=== PATIENT | female | born 1955 | race Caucasian/White ===

== ENCOUNTER → 2017-02-11 | Outpatient (CLI) | payer OTHER ==
[~2017-02-11] MED LIST: ACET-1311 PO; ALPR-411 PO; BACL10TA PO; LISI-461 PO; MELO7.5T5 PO; OXYC-57 PO; PRLSR20 PO; SIMV40TA2 PO; VALA500T60 PO; compound cream
== END | disposition home or self-care (01) ==
LOC: C.LAB1850 14:14
PROVIDERS: ATTEND Obstetrics & Gynecology
DX: Z80.41 Family history of malignant neoplasm of ovary (principal)

== ENCOUNTER → 2017-02-11 | Outpatient (CLI) | payer OTHER | END | disposition home or self-care (01) | LOC: C.PAPS 08:48 | PROVIDERS: ATTEND Obstetrics & Gynecology | DX: Z12.4 Encounter for screening for malignant neoplasm of cervix (principal) ==

== ENCOUNTER → 2017-02-18 | Outpatient (CLI) | payer OTHER ==
--- NOTE | 2017-02-19 08:15 | MAMMOGRAPHY REPORT ---
ULTRASOUND OF BOTH BREASTS: 02/18/2017 CLINICAL HISTORY: 61-year-old woman presents for bilateral whole breast screening ultrasound. She i s refusing mammography given her history of breast implants, which were placed 33 years ago. No pal pable mass, focal pain or nipple discharge. COMPARISON: None. FINDINGS: Real-time high-resolution sonographic evaluation was performed throughout each breast inc luding the axillae. No suspicious right or left axillary lymphadenopathy is seen. A few morphologi pasquale normal lymph nodes are identified. The breast parenchymal echotexture is homogeneousfatty. In the 2:00 left breast, 2 cm from the nipple, there are 2 adjacent nodular slightly hypoechoic mass es measuring 9.2 x 2.7 x 4.9 mm in conglomerate. No significant increased vascularity. This could simply represent normal breast tissue or a fibroadenoma. No other discrete solid or cystic masses s een throughout the left breast including the retroareolar breast. No suspicious solid or cystic mass is seen throughout the right breast including the retroareolar br east. While evaluating the breast parenchyma bilaterally, bilateral implants are identified, with linear e chogenic internal material that is suspicious for intracapsular rupture. No definite sonographic ev idence of extracapsular rupture. However, definitive characterization with a breast MRI is recommen ded. IMPRESSION: ACR BI-RADS CATEGORY 0: INCOMPLETE EVALUATION: NEED ADDITIONAL IMAGING EVALUATION - FOL LOW-UP RECOMMENDED 1. There is a slightly hypoechoic parallel mass versus normal breast tissue in the 2:00 left breast , 2 cm from the nipple that is benign in appearance. However, given that no prior exams are availab le to assess stability, a short interval follow-up targeted ultrasound is recommended to ensure stab ility in 6 months. 2. Bilateral silicone implants demonstrate probable intracapsular rupture on ultrasound. Definitiv e characterization with a breast MRI for implant assessment is recommended to assess for intracapsul ar and possible extracapsular rupture, particularly given the age of the patient's implants. 3. At the time of breast MRI for assessing implant integrity, would also recommend administering co ntrast given that the patient is refusing mammography and the exam could also be optimized to evalua te for breast cancer. 4. Consider surgical consultation regarding bilateral breast implants. These results and recommendations were discussed with the patient at the time of the exam. Carmen Alvares M.D. ay/:02/18/2017 16:16:59 Dancing Instructor: Dr. Carmen Alvares, [facility] letter sent: Addl Imaging 0 BI-RADS Code: ACR BI-RADS Category 0: Incomplete Evaluation: Need Additional Imaging Evaluation
== END | disposition home or self-care (01) ==
LOC: C.MAMM 13:34
PROVIDERS: ATTEND Obstetrics & Gynecology
DX: F40.232 Fear of other medical care (principal); Z98.82 Breast implant status; R92.8 Other abnormal and inconclusive findings on diagnostic imaging of breast

== ENCOUNTER → 2017-02-23 | Outpatient (CLI) | payer OTHER, BC | END | disposition home or self-care (01) | LOC: C.LABBC 12:37 | PROVIDERS: ATTEND Obstetrics & Gynecology | DX: R92.8 Other abnormal and inconclusive findings on diagnostic imaging of breast (principal) ==

== ENCOUNTER → 2017-03-03 | Outpatient (CLI) | payer OTHER ==
[~2017-03-03] MED LIST changes: +GADAVIST IV PRN
--- NOTE | 2017-03-05 14:08 | MAMMOGRAPHY REPORT ---
BREAST MRI OF BOTH BREASTS : 03/03/2017 CLINICAL HISTORY: 61-year-old woman with bilateral breast implants placed approximately 33 years ago . She recently presented for bilateral whole breast screening ultrasound and declined screening angel mography. On ultrasound, there was questionable implant rupture identified bilaterally. Small nodu lar areas were seen in the 2:00 left breast on ultrasound that were indeterminate. Overall, evaluat e implant integrity, and exclude a suspicious enhancing mass. COMPARISON: Comparison is made to exams dated: 12/30/2005 ultrasound and 02/18/2017 ultrasound - [facility]. TECHNIQUE: Using a 1.5 Christy magnet and dedicated breast coil, multisequence axial images were obtai tee through the breasts. After uneventful IV administration of 7.5 mL of Gadavist, dynamic multipha se contrast-enhanced axial images, and sagittal postcontrast were obtained. Temporal subtraction ax ial images and 3-D MIP images are provided. Everything was then reviewed on a 3-D workstation, [employer]. Additional axial and sagittal STIR sequences were obtained to assess implant integrity. FINDINGS: Bilateral subglandular silicone implants are in place. There is intracapsular rupture and a possible small amount of extracapsular rupture of the right breast implant. The probable extraca psular rupture is seen on axial image 9/39 and sagittal image 42/49. It measures 8 mm in diameter a nd is located along the inferolateral posterior aspect of the fibrous capsule. There are prominent folds throughout the left breast implant, but no definitive evidence of intracapsular or extracapsul ar rupture. There is no significant background parenchymal enhancement of the right breast. There is architectu ral distortion and scarring behind the right nipple, likely related to previous surgery. This is no nenhancing. No suspicious enhancing mass, non-mass enhancement or suspicious kinetics are seen in t he right breast. There is no focal skin thickening or nipple retraction. No suspicious right axill jo ann lymphadenopathy. There is no significant background parenchymal enhancement of the left breast. On the T1 precontras t images, in the approximate 2:00 anterior left breast, there is a small, 8.7 x 3.3 mm island of gla ndular tissue that is nonenhancing which may explain the hypoechoic nodular areas seen on recent who le breast ultrasound. Although these have a benign MRI and sonographic appearance, given the conspi cuous nature, a short interval follow-up targeted left breast ultrasound is recommended in 6 months. No suspicious enhancing mass, non-mass enhancement, focal area of architectural distortion or susp icious kinetics are seen in the left breast. There is no focal skin thickening or nipple retraction . No suspicious left axillary lymphadenopathy. IMPRESSION: ACR-BI-RADS CATEGORY 3: PROBABLY BENIGN 1. Right silicone implant intracapsular rupture and possible small amount of extracapsular rupture along the inferolateral posterior origin of the capsule. 2. No definitive MRI evidence of left silicone implant intracapsular or extracapsular rupture, alth ough there are prominent folds of the implant, and the images are minimally degraded by motion artif act. 3. No suspicious enhancing mass, non-mass enhancement or definite MRI evidence of malignancy bilate rally. A small island of glandular tissue that is nonenhancing is seen in the 2:00 left breast whic h may correlate with the nodular lesions seen on recent screening ultrasound. Would recommend a josette rt interval follow-up targeted left breast ultrasound to ensure stability in 6 months. 4. If the patient declines mammography, which is the gold standard for reducing breast cancer margaret guillen, consider another modality such as annual screening ultrasound or breast MRI. The patient will receive written notification of the results. Carmen Alvares M.D. ay/:03/04/2017 16:37:05 Telegraph Repeater Mechanic: wad lubricator, [facility] letter sent: Follow Up Recommended 3 BI-RADS Code: ACR-BI-RADS Category 3: Probably Benign
== END | disposition home or self-care (01) ==
LOC: C.MRI 10:01
PROVIDERS: ATTEND Obstetrics & Gynecology
DX: R92.8 Other abnormal and inconclusive findings on diagnostic imaging of breast (principal)

== ENCOUNTER → 2017-06-18 | Outpatient (CLI) | payer OTHER ==
[~2017-06-18] MED LIST changes: -ACET-1311 PO; -GADAVIST IV PRN; -OXYC-57 PO
--- NOTE | 2017-06-18 09:51 | DIAGNOSTIC IMAGING REPORT ---
LEG LENGTH STUDY (WHOLE LEG) HISTORY: 61 years-old Female LEG LENGTH possible leg length discrepancy. COMPARISON: Left foot radiographs 08/25/2016. TECHNIQUE: 5 AP radiographs for leg length study were obtained in a standing position. FINDINGS: The right lower extremity measures 93.5 cm from the femoral head to tibial plafond and the left lower extremity measures 93.1 cm from the femoral head to tibial plafond. Mild degenerative changes involve the bilateral hips. There are phleboliths within the pelvis. No acute fracture or dislocation. Mild tricompartment osteoarthritis is noted about the knees with chondrocalcinosis involving the medial and lateral compartments of the right knee. The bones are mildly demineralized. Soft tissues are unremarkable. IMPRESSION: 1. Right lower extremity is 4 mm longer than the left. 2. Mild osteoarthritis about the bilateral hips and knees without fracture. The above report was generated using voice recognition software. It may contain grammatical, syntax or spelling errors. Electronically signed by: Tomás Garcia M.D. 06/18/2017 9:49 AM Dictated Date/Time: 06/18/2017 9:44 AM
== END | disposition home or self-care (01) ==
LOC: C.RADBC 09:31
PROVIDERS: ATTEND Physician Assistant
DX: M21.70 Unequal limb length (acquired), unspecified site (principal)

== ENCOUNTER → 2017-08-04 | Outpatient (CLI) | payer OTHER ==
[2017-08-04 14:49] LABS: BASO ABS # 0.07 K/uL (0-0.2); COMPLETE YES; EOS % 3.9 %; HEMATOCRIT 45.4 % (37-47); IG% 0.4 %; LYMPH % 22.7 %; LYMPH ABS # 1.52 K/uL (1.2-3.4); MEAN CELL VOLUME 99.6 fL (80-100); MEAN CORPUSCULAR HEMOGLOBIN 33.6 pg (25-34); MEAN CORPUSCULAR HGB CONC 33.7 g/dl (32-36); MONO % 9.3 %; NEUT % 62.7 %; PLATELET COUNT 274 K/uL (130-400); RED BLOOD COUNT 4.56 M/uL (4.2-5.4); WHITE BLOOD COUNT 6.69 K/uL (4.8-10.8)
[2017-08-04 14:56] LABS: INR 0.9 (0.9-1.1); PARTIAL THROMBOPLASTIN RATIO 1.1; PROTHROMBIN TIME (PATIENT) 10.1 SECONDS (9.0-12.0)
[2017-08-04 15:04] LABS: BLOOD UREA NITROGEN 24 mg/dl (7-18); BUN/CREATININE RATIO 22.1 (10-20); CARBON DIOXIDE 26 mmol/L (21-32); CHLORIDE 105 mmol/L (98-107); GLUCOSE 88 mg/dl (70-99); MAGNESIUM 2.1 mg/dl (1.8-2.4); POTASSIUM 4.3 mmol/L (3.5-5.1); SODIUM 139 mmol/L (136-145)
== END | disposition home or self-care (01) ==
LOC: C.LAB1850 12:40
PROVIDERS: ATTEND Internal Medicine
DX: Z00.00 Encounter for general adult medical examination without abnormal findings (principal); I10 Essential (primary) hypertension; Q87.81 Alport syndrome; R00.1 Bradycardia, unspecified; R58 Hemorrhage, not elsewhere classified

== ENCOUNTER → 2017-08-19 | Day surgery (SDC) | payer OTHER ==
[2017-08-13 11:17] VITALS: BMI 28.0
[~2017-08-19] VITALS: Ht 167.6 cm; Wt 82.0 kg
[~2017-08-19] MED LIST changes: +ACET-1311 PO; +ACETAMINOPHEN 1000 MG/100 ML IV IV ONE; +ACETAMINOPHEN 325 MG TAB PO PRN; +ATROPINE SULFATE 0.1 MG/ML 5ML SYR IV PRN; +BACITRACIN 50000 UNIT VIAL ONE; -BACL10TA PO; +BUPIVACAINE 0.25% 30 ML VIAL ONE; +CEFAZOLIN 2000MG IV PUSH 10 ML IV SCH; +CEFAZOLIN SOD 1 GM VIAL ONE; +DiphenhydrAMINE HCL 50 MG/ML VIAL ONE; +EpHEDrine SULFATE 50MG/5ML SYR ONE; +EpHEDrine SULFATE INJ 50 MG/ML AMP IV PRN; +FENTANYL CITRATE INJ 50 MCG/1 ML 2 ML VIAL IV PRN; +FENTANYL CITRATE INJ 50 MCG/1 ML 2 ML VIAL ONE; +GENTAMICIN SULFATE 40 MG/ML 2 ML VIAL ONE; +GLYCOPYRROLATE INJ 0.2 MG/ML VIAL ONE; +HYDROmorphone INJ 1 MG/ML SYR IV PRN; +HYDROmorphone INJ 2 MG/ML SYR/VIAL ONE; +LABETALOL HCL IV 5 MG/ML 20ML IV PRN; +LACTATED RINGER'S 1000ML 1,000 ML IV SCH; +LIDOCAINE HCL 2% 2 ML VIAL (20MG/ML) ONE; +LIDOCAINE/EPINEPHRINE 1% 20 ML VIAL ONE; -MELO7.5T5 PO; +MEPERIDINE HCL 25 MG/ML CARP IV PRN; +METOCLOPRAMIDE HCL INJ 5 MG/ML 2 ML VIAL IV PRN; +METOCLOPRAMIDE HCL INJ 5 MG/ML 2 ML VIAL ONE; +MIDAZOLAM HCL 1 MG/ML 2ML VIAL ONE; +NEOSTIGMINE METHYLSULFATE 5 MG/5 ML SYR ONE; +ONDANSETRON INJ 2 MG/ML 2 ML VIAL IV PRN; +ONDANSETRON INJ 2 MG/ML 2 ML VIAL ONE; +OXYC-57 PO; +OXYCODONE/ACETAMINOPHEN 5-325 TAB PO PRN; +PROPOFOL IV EMULSION 10 MG/ML 100 ML VIAL IV ONE; +PROPOFOL IV EMULSION 10 MG/ML 20 ML VIAL IV ONE; +REMIFENTANIL 1 MG VIAL ONE; +ROCURONIUM BROMIDE 10 MG/ML 5 ML VIAL IV ONE; +SCOPOLAMINE 1.5 MG TDSY TD ONE; +SODIUM CHLORIDE 0.9% 1000ML 1,000 ML IV SCH; -VALA500T60 PO; -compound cream
[2017-08-19 05:47] VITALS: BP 136/73; PULSE 51; TEMP 36.7; O2SAT 95; Ht 167.6 cm; Wt 82.0 kg
--- NOTE | 2017-08-19 07:01 | History & Physical Bridge Note ---
H&P Re-Evaluation Bridge Note: I have examined the patient, reviewed the History & Physical and in the interval since the performance of the History & Physical I have noted the following changes of clinical significance: No changes noted
--- NOTE | 2017-08-19 10:05 | [facility] Post Operative Brief Note ---
Immediate Operative Summary Operative Date Aug 19, 2017. Pre-Operative Diagnosis Capsular contracture of breast implant abnormal findings on radiological examination of breast ruptured silicone breast implant Post-Operative Diagnosis same Procedure(s) Performed Bilateral Breast Implant Removal with Capsulectomy, Replacement of Implants Surgeon Dr. Aggie Plunkett Assistant Front End Manager Surgeon(s) Martha Kelly PA-C Estimated Blood Loss 5 Findings left implant ruptured, some calcification of left capsule right implant ruptured, significant calcification of capsule, extra capsular rupture Specimens A. explanted implant left breast B. left breast capsule c. explanted implant right breast d. left breast capsule Anesthesia general Complication(s) None Disposition Recovery Room / PACU
--- NOTE | 2017-08-19 10:20 | Discharge Instructions ---
Discharge Instructions Date of Service Aug 19, 2017. Admission Reason for Admission: Capsular Contracture Of Breast Implant Discharge Discharge Diagnosis / Problem: Breast Implant Rupture Discharge Goals Goal(s): Decrease discomfort Activity Recommendations Activity Limitations: per Instructions/Follow-up section ACTIVITY RECOMMENDATIONS: __Normal activities _x_No bending, lifting or straining __No driving __Driving allowed when you are off pain medications _x_Walking permitted __You should have help at home for ___ days DRESSINGS: __No dressings required _x_Keep dressings dry/in place until first office visit. You may adjust surgical bra for comfort, but continue to wear it. __Remove dressings ___ and leave dressings off _x_Apply ice _2-3__ days __Remove dressings and reapply garment __Apply antibiotic ointment (Bacitracin, Neosporin, etc) to wounds 3-4 times/ day for 10 days BATHING: _x_Keep dressings dry _x_Sponge bathing permitted- but not on breasts __Showering permitted _x_No swimming, hot tubs or soaking in a tub MEDICATIONS: Resume previous medications unless instructed otherwise by your surgeon. _x_Do not use aspirin, Motrin, Advil or Ibuprofen as these may promote bleeding. Please use Tylenol. _x_Prescription(s) provided: Percocet provided today per patient request. You may be fine to start with Tramadol. OTHER INSTRUCTIONS: __Record drain output 2-3 times per day SPECIAL CARE INSTRUCTIONS: * It is normal to have a mild fever after surgery. If your temperature is higher than 101.5 degrees F, please call the office at [phone]. * Constipation is a typical side effect of pain medication. An over-the- counter stool softener will help relieve this. * Leaking around surgical drains may occur and should not cause concern. Sometimes these drains become clogged. If this happens, remove the bulb and milk the clot out of the tube, then replace the bulb. * Drainage from wounds after liposuction is normal and should be expected. Garments will become soiled. You should protect furniture and bedding. This drainage should mostly subside within 2-3 days. Leave garments in place unless instructed to remove them. * If you have unusual drainage from a wound or are concerned you have an infection or have any questions or concerns, please call the office at [phone]. FOLLOW UP VISIT: If not already scheduled, please call the office, , when you return home after surgery to schedule an appointment to be seen in _2__ days. . Current Hospital Diet Patient's current hospital diet: Discharge Diet Recommended Diet: Regular Diet Procedures Procedures Performed: Bilateral Breast Implant Removal with Capsulectomy, Replacement of Implants Pending Studies Studies pending at discharge: yes List of pending studies: pathology Medical Emergencies . Who to Call and When: Medical Emergencies: If at any time you feel your situation is an emergency, please call 911 immediately. . Non-Emergent Contact Non-Emergency issues call your: Primary Care Provider, Surgeon . "Provider Documentation" section prepared by Martha Kelly. . VTE Core Measure Inpt VTE Proph given/why not?: SCD's [place] Drug Monitoring Program Search Results: no issues identified
--- NOTE | 2017-08-19 10:57 | Anesthesiology Progress Note ---
Anesthesia Post Op Note Date & Time Aug 19, 2017 at 10:56 Vital Signs Pain Intensity: 0 Vital Signs Past 12 Hours Date Time Temp Pulse Resp B/P (MAP) Pulse Ox O2 Delivery O2 Flow Rate FiO2 08/19/17 10:45 36.1 46 16 128/70 98 Nasal Cannula 2 08/19/17 10:35 72 16 129/73 98 Oxymask 3 08/19/17 10:25 69 16 132/81 98 Oxymask 5 08/19/17 10:15 36.0 67 16 133/76 98 Oxymask 10 08/19/17 05:47 36.7 51 16 136/73 (94) 95 Room Air Notes Mental Status: alert / awake / arousable, participated in evaluation Pt Amnestic to Procedure: Yes Nausea / Vomiting: adequately controlled Pain: adequately controlled Airway Patency, RR, SpO2: stable & adequate BP & HR: stable & adequate Hydration State: stable & adequate Anesthetic Complications: no major complications apparent
[2017-08-19 11:00] VITALS: BP 131/70; PULSE 66; TEMP 36.2; O2SAT 94
[2017-08-19 11:30] VITALS: BP 122/77; PULSE 64; TEMP 36.4; O2SAT 97
[2017-08-19 12:00] VITALS: BP 121/75; PULSE 65; TEMP 36.4; O2SAT 94
--- NOTE | 2017-08-19 18:12 | OPERATIVE REPORT ---
DATE OF OPERATION: 08/19/2017 PREOPERATIVE DIAGNOSIS: Bilateral ruptured silicone breast implants and capsular contracture. POSTOPERATIVE DIAGNOSIS: Same. PROCEDURE: Bilateral breast implant removal with capsulectomy and replacement of implants. SURGEON: Dr. Aggie Plunkett. S IRON WORKER: Martha Kelly PA-C. ANESTHESIA: General. COMPLICATIONS: None. INDICATION FOR THE PROCEDURE: The patient is a 62-year-old female who presented to my office with concerns of right breast pain and firmness. MRI suggested bilateral implant rupture. With this in mind, we recommended implant removal and replacement if desired. Her breast implants have been in place for approximately 30 years and we did recommend implant replacement due to significant likely breast tissue atrophy due to longstanding placement of implants. BRIEF DESCRIPTION OF THE PROCEDURE: The risks, benefits and alternatives of the procedure were explained to the patient who agreed and signed consent. She was identified and marked in the preoperative holding area. She was brought to the operating room where she was positioned supine and placed under anesthesia without incident. Surgical site was prepped and draped sterilely. I began with the left side. Our prior incision had been an inferior areolar incision. However, due to the degree of capsular contracture, felt it would be difficult to use this incision and therefore opted to use an inframammary fold incision. A 1% lidocaine with epinephrine was used to anesthetize the planned incision as well as the breast parenchyma. A 15 blade scalpel was used to make the incision and deepened using electrocautery. Dissection was carried through breast parenchyma until the capsule was identified. The implant was noted to be in the subglandular plane. I was able to perform the majority of the capsular dissection, leaving the implant in place and this was performed using electrocautery. There was evidence of possible extracapsular rupture on the left. Capsular dissection was performed until I reached the 12 o'clock position in which case it was difficult to adequately perform this with the implant in situ. I achieved hemostasis throughout the dissection using a lighted retractor, insulated forceps and electrocautery. When I could no longer continue dissection, the capsule was opened and the implant was removed. While the implant did appear to be intact, the outer shell of the implant was grossly ruptured. There were no markings on the implant to identify brand style or volume. I did measure the implant was removed and it was 13.7 base diameter and 2.7 cm projection. Photographs were taken to document implant rupture. Following removal of the implant, the remainder of the capsule was able to be dissected and removed in its entirety using electrocautery and an Allis clamp. Upon removal of the capsule, there was noted to be some calcification posteriorly consistent with prior rupture. Hemostasis was achieved with electrocautery. The pocket was irrigated using Betadine. Saline was used to irrigate the pocket and it was packed using saline-soaked lap sponges and Marcaine. Attention was then turned to the right breast. A similar procedure was undertaken. However, there was evidence of gross rupture of the right implant with significant calcification noted both anteriorly and posteriorly. There was evidence of free silicone as well. The implant and shell were removed when I was unable to perform dissection of the capsule any further. Following this, the entire capsule was removed using electrocautery and Allis clamp. Again, the pocket was irrigated in similar fashion and packed. At this point based on measurements of the left breast implant, I looked at size options. Initially I tried a 350 mL implant which was felt to be too small. Therefore, tried a 425 mL implant with similar measurements and this did appear to adequately fill out the pocket and provide a good result. Therefore, I ended up selecting a [place] smooth round moderate plus profile 425 mL silicone implant which was placed in the pocket. This was soaked in antibiotic irrigation and the pocket was irrigated with antibiotic and instruments were wiped, gown and gloves were changed prior to handling the implant. It was placed in the pocket and the incision was closed using 2-0 Vicryl superficial fascial sutures followed by 2-0 Vicryl deep dermal sutures, 3-0 PDS superficial dermal sutures and 3-0 Monocryl running subcuticular suture. A similar procedure was undertaken on the right side with regard to implant selection antibiotic irrigation and closure. Dermabond was applied to both incisions. Dry dressings were placed followed by a surgical support bra. Both implants and capsules were sent for pathology. Photographs were taken of both implants as well as capsules to document degree of calcification. I attest to the content of the Intraoperative Record and any orders documented therein. Any exception s are noted below.
--- NOTE | 2017-08-25 13:56 | [facility] Operative Report ---
Operative Report Operative Date Aug 25, 2017. Pre-Operative Diagnosis Capsular contracture of breast implant abnormal findings on radiological examination of breast ruptured silicone breast implant Post-Operative Diagnosis same Procedure(s) Performed Bilateral Breast Implant Removal with Capsulectomy, Replacement of Implants Surgeon Dr. Aggie Plunkett Identifier Horse Surgeon(s) Martha Kelly PA-C Estimated Blood Loss 5 Findings see original op note Specimens A. explanted implant left breast B. left breast capsule c. explanted implant right breast d. left breast capsule Anesthesia general Disposition Recovery Room / PACU Description of Procedure Addendum to previously dictated note-Martha Kelly PA-C was present and scrubbed throughout the entire procedure and was instrumental in providing retraction to facilitate capsulectomy and assisting in simultaneous wound closure. I attest to the content of the Intraoperative Record and any orders documented therein. Any exceptions are noted below.
== END | disposition home or self-care (01) ==
LOC: C.ACU 05:24
PROVIDERS: ATTEND Plastic Surgery
DX: T85.49XA Other mechanical complication of breast prosthesis and implant, initial encounter (principal); T85.44XA Capsular contracture of breast implant, initial encounter; Y81.2 Prosthetic and other implants, materials and accessory general- and plastic-surgery devices associated with adverse incidents; R92.8 Other abnormal and inconclusive findings on diagnostic imaging of breast; Q87.81 Alport syndrome; F41.9 Anxiety disorder, unspecified; Z80.41 Family history of malignant neoplasm of ovary; Z86.19 Personal history of other infectious and parasitic diseases; Z90.710 Acquired absence of both cervix and uterus; Z84.1 Family history of disorders of kidney and ureter; Z87.891 Personal history of nicotine dependence; Z88.5 Allergy status to narcotic agent; E66.9 Obesity, unspecified; N03.9 Chronic nephritic syndrome with unspecified morphologic changes

== ENCOUNTER → 2018-04-29 | Outpatient (CLI) | payer OTHER ==
[~2018-04-29] MED LIST changes: -ACETAMINOPHEN 1000 MG/100 ML IV IV ONE; -ACETAMINOPHEN 325 MG TAB PO PRN; -ATROPINE SULFATE 0.1 MG/ML 5ML SYR IV PRN; -BACITRACIN 50000 UNIT VIAL ONE; +BACL10TA PO; -BUPIVACAINE 0.25% 30 ML VIAL ONE; -CEFAZOLIN 2000MG IV PUSH 10 ML IV SCH; -CEFAZOLIN SOD 1 GM VIAL ONE; -DiphenhydrAMINE HCL 50 MG/ML VIAL ONE; -EpHEDrine SULFATE 50MG/5ML SYR ONE; -EpHEDrine SULFATE INJ 50 MG/ML AMP IV PRN; -FENTANYL CITRATE INJ 50 MCG/1 ML 2 ML VIAL IV PRN; -FENTANYL CITRATE INJ 50 MCG/1 ML 2 ML VIAL ONE; -GENTAMICIN SULFATE 40 MG/ML 2 ML VIAL ONE; -GLYCOPYRROLATE INJ 0.2 MG/ML VIAL ONE; -HYDROmorphone INJ 1 MG/ML SYR IV PRN; -HYDROmorphone INJ 2 MG/ML SYR/VIAL ONE; -LABETALOL HCL IV 5 MG/ML 20ML IV PRN; -LACTATED RINGER'S 1000ML 1,000 ML IV SCH; -LIDOCAINE HCL 2% 2 ML VIAL (20MG/ML) ONE; -LIDOCAINE/EPINEPHRINE 1% 20 ML VIAL ONE; -MEPERIDINE HCL 25 MG/ML CARP IV PRN; -METOCLOPRAMIDE HCL INJ 5 MG/ML 2 ML VIAL IV PRN; -METOCLOPRAMIDE HCL INJ 5 MG/ML 2 ML VIAL ONE; -MIDAZOLAM HCL 1 MG/ML 2ML VIAL ONE; -NEOSTIGMINE METHYLSULFATE 5 MG/5 ML SYR ONE; -ONDANSETRON INJ 2 MG/ML 2 ML VIAL IV PRN; -ONDANSETRON INJ 2 MG/ML 2 ML VIAL ONE; -OXYC-57 PO; -OXYCODONE/ACETAMINOPHEN 5-325 TAB PO PRN; -PROPOFOL IV EMULSION 10 MG/ML 100 ML VIAL IV ONE; -PROPOFOL IV EMULSION 10 MG/ML 20 ML VIAL IV ONE; -REMIFENTANIL 1 MG VIAL ONE; -ROCURONIUM BROMIDE 10 MG/ML 5 ML VIAL IV ONE; -SCOPOLAMINE 1.5 MG TDSY TD ONE; -SODIUM CHLORIDE 0.9% 1000ML 1,000 ML IV SCH
[2018-04-29 15:40] LABS: BASO % 0.6 %; BASO ABS # 0.04 K/uL (0-0.2); EOS % 4.3 %; EOS ABS # 0.27 K/uL (0-0.5); HEMATOCRIT 41.4 % (37-47); HEMOGLOBIN 13.7 g/dL (12.0-16.0); IG# 0.01 K/uL (0.00-0.02); LYMPH % 23.7 %; LYMPH ABS # 1.48 K/uL (1.2-3.4); MEAN CELL VOLUME 98.1 fL (80-100); MEAN CORPUSCULAR HEMOGLOBIN 32.5 pg (25-34); MEAN CORPUSCULAR HGB CONC 33.1 g/dl (32-36); MEAN PLATELET VOLUME 10.4 fL (7.4-10.4); MONO % 8.7 %; MONO ABS # 0.54 K/uL (0.11-0.59); NEUT % 62.5 %; PLATELET COUNT 266 K/uL (130-400); WHITE BLOOD COUNT 6.24 K/uL (4.8-10.8)
== END | disposition home or self-care (01) ==
LOC: C.LAB1850 14:48
PROVIDERS: ATTEND Internal Medicine
DX: E78.00 Pure hypercholesterolemia, unspecified (principal)

== ENCOUNTER 2023-03-30 09:41 | Inpatient (IN) ==
--- NOTE | 2023-03-05 13:30 | PAT Medication Instructions ---
Medication Instructions Date of Service March 05, 2023 Home Medications Medication Instructions Recorded fluticasone propionate 50 2 spray intranasal QAM PRN Allergy 06/07/21 mcg/actuation nasal Symptoms #48 grams spray,suspension triamcinolone acetonide 0.025 % 1 applic topical TID PRN itching 03/11/22 topical cream #15 grams albuterol sulfate 90 mcg/actuation 1 inh inhalation QID PRN shortness 06/04/22 aerosol inhaler (Ventolin HFA) of breath or wheezing #8.5 grams lidocaine 5 % topical patch 2 patch topical DAILY #60 ea 10/21/22 alprazolam 0.5 mg tablet 0.5 - 1 mg PO HS PRN Sleep #60 tabs 12/05/22 glucosamine sulf dipot chlr,msm,chond 550 mg-C 30 mg-angelika 1 mg capsule (Glucosamine Chondroitin) 2 cap PO QAM fluticasone propionate 50 mcg/actuation nasal spray,suspension 2 spray intranasal QAM PRN ascorbic acid (vitamin C) 500 mg capsule,extended release (Vitamin C) 500 mg PO QAM cholecalciferol (vitamin D3) 25 mcg (1,000 unit) capsule 1,000 unit PO QAM triamcinolone acetonide 0.025 % topical cream 1 applic topical TID PRN albuterol sulfate 90 mcg/actuation aerosol inhaler (Ventolin HFA) 1 inh inhalation QID PRN lidocaine 5 % topical patch 2 patch topical DAILY alprazolam 0.5 mg tablet 0.5 - 1 mg PO HS PRN baclofen 10 mg tablet 10 mg PO TID PRN hydrochlorothiazide 25 mg tablet 25 mg PO Q7D losartan 100 mg tablet 100 mg PO QAM meloxicam 15 mg tablet 15 mg PO QAM nystatin 100,000 unit/gram topical powder 1 applic topical DAILY PRN pantoprazole 40 mg tablet,delayed release 40 mg PO BID rosuvastatin 20 mg tablet 20 mg PO HS sucralfate 100 mg/mL oral suspension 10 ml PO DAILY PRN ASK your surgeon for instructions meloxicam 15 mg tablet 15 mg PO QAM STOP taking 2 weeks before surgery (or as soon as possible if surgery is within 2 weeks) glucosamine sulf dipot chlr,msm,chond 550 mg-C 30 mg-angelika 1 mg capsule (Glucosamine Chondroitin) 2 cap PO QAM STOP taking 24 hours before surgery triamcinolone acetonide 0.025 % topical cream 1 applic topical TID PRN lidocaine 5 % topical patch 2 patch topical DAILY nystatin 100,000 unit/gram topical powder 1 applic topical DAILY PRN DO NOT take the morning of surgery ascorbic acid (vitamin C) 500 mg capsule,extended release (Vitamin C) 500 mg PO QAM cholecalciferol (vitamin D3) 25 mcg (1,000 unit) capsule 1,000 unit PO QAM baclofen 10 mg tablet 10 mg PO TID PRN hydrochlorothiazide 25 mg tablet 25 mg PO Q7D losartan 100 mg tablet 100 mg PO QAM sucralfate 100 mg/mL oral suspension 10 ml PO DAILY PRN Take morning of surgery With a small sip of water, OTHERWISE NOTHING TO EAT OR DRINK AFTER MIDNIGHT: fluticasone propionate 50 mcg/actuation nasal spray,suspension 2 spray intranasal QAM PRN(if needed) albuterol sulfate 90 mcg/actuation aerosol inhaler (Ventolin HFA) 1 inh inhalation QID PRN(use if needed; please bring with you to hospital day of surgery if possible) pantoprazole 40 mg tablet,delayed release 40 mg PO BID Take evening before surgery alprazolam 0.5 mg tablet 0.5 - 1 mg PO HS PRN(if needed) baclofen 10 mg tablet 10 mg PO TID PRN(if needed) pantoprazole 40 mg tablet,delayed release 40 mg PO BID rosuvastatin 20 mg tablet 20 mg PO HS Other Notes If you have any questions please call us at [phone] or [phone] or [phone] or [phone]
--- NOTE | 2023-03-16 10:39 | Anesthesiology Consultation ---
Date of Service March 16, 2023 Assessment & Plan (1) Encounter for pre-operative examination: - Cr 1.5, PCP response: CKD3 w/ baseline Cr since 08/2020 ~1.3-1.5. No further workup/optimization needed from renal perspective prior to surgery. Encourage good hydration, limit PO NSAIDs as able, avoid perioperative hypotension. Hold losartan on the morning of surgery." - pt requests only manual BP checks. Chart Review Chart Review: Acceptable Risk for Surgery and Patient seen in Pre Admission Testing Teaching & Discussion Pre-Anesthesia Teaching/Discussion Notes: Instructed NPO after midnight before surgery, except medications with 15 cc of water. Medication instructions provided according to the PAT guidelines. History Surgery Operation Date: 03/30/23 07:45 Proposed Procedures p L2-L5 Decompression and Fusion, Spinal Cord Monitoring - Benjie Delgado DO Height/Weight Height: 5 ft 7 in Weight: 81.647 kg Allergies Allergy/AdvReac Type Severity Reaction Status Date / Time aminophylline Allergy Unknown BREATHING Verified 03/05/23 09:12 ISSUES, AND VOMITING codeine Allergy Unknown SEVERE Verified 03/05/23 09:12 VOMITING theophylline Allergy Unknown SEVERE Verified 03/05/23 09:12 VOMITING, BREATHING ISSUES oxycodone Allergy Unknown Verified 03/05/23 09:12 Medications Home Medications Medication Instructions Recorded Confirmed Last Taken glucosamine sulf dipot 2 cap PO QAM 06/25/20 03/05/23 04/01/21 08:00 chlr,msm,chond 550 mg-C 30 mg-angelika 1 mg capsule (Glucosamine Chondroitin) fluticasone propionate 50 2 spray intranasal QAM PRN Allergy 06/07/21 03/05/23 Unknown mcg/actuation nasal Symptoms #48 grams spray,suspension ascorbic acid (vitamin C) 500 mg 500 mg PO QAM 09/25/21 03/05/23 Unknown capsule,extended release (Vitamin C) cholecalciferol (vitamin D3) 25 1,000 unit PO QAM 09/25/21 03/05/23 Unknown mcg (1,000 unit) capsule triamcinolone acetonide 0.025 % 1 applic topical TID PRN itching 03/11/22 03/05/23 Unknown topical cream #15 grams albuterol sulfate 90 mcg/actuation 1 inh inhalation QID PRN shortness 06/04/22 03/05/23 Unknown aerosol inhaler (Ventolin HFA) of breath or wheezing #8.5 grams lidocaine 5 % topical patch 2 patch topical DAILY #60 ea 10/21/22 03/05/23 Unknown alprazolam 0.5 mg tablet 0.5 - 1 mg PO HS PRN Sleep #60 tabs 12/05/22 03/05/23 Unknown baclofen 10 mg tablet 10 mg PO TID PRN muscle spasms 03/05/23 03/05/23 Unknown hydrochlorothiazide 25 mg tablet 25 mg PO Q7D 03/05/23 03/05/23 Unknown losartan 100 mg tablet 100 mg PO QAM 03/05/23 03/05/23 Unknown meloxicam 15 mg tablet 15 mg PO QAM 03/05/23 03/05/23 Unknown nystatin 100,000 unit/gram topical 1 applic topical DAILY PRN Skin 03/05/23 03/05/23 Unknown powder Irritation pantoprazole 40 mg tablet,delayed 40 mg PO BID 03/05/23 03/05/23 Unknown release rosuvastatin 20 mg tablet 20 mg PO HS 03/05/23 03/05/23 Unknown sucralfate 100 mg/mL oral 10 ml PO DAILY PRN Nausea #420 mL 03/06/23 Unknown suspension valacyclovir 500 mg tablet 500 mg PO DAILY 5 days #5 tabs 03/06/23 Unknown (Valtrex) diphenhydramine HCl 25 mg capsule 25 mg PO HS 03/16/23 03/16/23 Unknown (Benadryl) Additional Notes: Pt states surgeon has advised use of a "muscle stimulator" in the evening and was advised to contact surgeon's office for instructions. She uses a tincture of medical marijuana in the evening-was instructed cannot take day of surgery. She also reports taking benadryl in the evening to aid sleep, this was added to EMR and written on provided medication instructions. She denies additional medications, questions or concerns. Past Medical History Medical History (Updated 03/16/23 @ 11:22 by Ericka Oneill PA-C) Asthma As a teenager, no current issues Bradycardia baseline for patient CKD (chronic kidney disease) stage 3, GFR 30-59 ml/min Depression history of after loss of a child Gastritis GERD (gastroesophageal reflux disease) controlled, stable per pt Hyperlipidemia Hypertension controlled, stable per pt-*pt requests only manual BP checks Kidney disease Chronic Glomerulo nephritis Nausea and vomiting after administration of anesthetic agent denies needing scop patch Obesity (BMI 30-39.9) Sensorineural hearing loss (SNHL) of right ear with restricted hearing of left ear Rt RIVERA Tinnitus of right ear Urinary incontinence Vertigo Has occasional episodes-stable per pt Patient denies h/o stroke, seizures, heart attack, heart failure, DM, blood clots or blood transfusions. Exercise / Class Metabolic Activity III < 4 Walking/Shop/Light housework (denies chest discomfort or shortness of breath with usual activities, does not ambulate stairs due to current back pain) Past Family History Family History Brother Hearing loss Son Hearing loss Mother Hypertension Cancer Family history of ovarian cancer Father Hypertension Heart disease Sister Cervix cancer Grandmother (Maternal) Uterine cancer Other Kidney disease Denies family history of Breast cancer Colorectal cancer Past Surgical History Surgical History (Updated 03/16/23 @ 10:58 by Ericka Oneill PA-C) H/O bilateral breast implants last exchange 08/2017 for rupture and capsular contracture [place] MP 425 cc silicone, smooth round H/O laparoscopy Dx H/O oophorectomy L, R remains H/O: hysterectomy 1984 History of colonoscopy History of esophagogastroduodenoscopy (EGD) History of selective injection of anesthetic agent around lumbar nerve root Hx of bilateral cataract extraction S/P tooth extraction Past Anesthesia History No Hx of Anesthesia Complications and No Family Hx of Anesthesia Complications History of PONV No Hx of Motion Sickness and History of PONV (denies needing scop patch) Social History Smoking Status: Former smoker Do You Dip or Chew Tobacco: No Smoking End Date: 2007 Hx Alcohol Use: Yes Alcohol type: beer, wine and hard liquor alcohol intake frequency: a few times a week Hx Substance Use: No substance use type: marijuana (medical marijuana-used for anxiety and pain- advised) Review of Systems Snoring, denies witnessed apneas. Patient denies chest pain, shortness of breath, dyspnea on exertion, fever, chills, cough, wheezing, or palpitations. Physical Exam Vital Signs Vitals BP 122/71 P 46 TEMP 97.9 SP02 96% on RA RESP 17 Physical Full cervical extension range of motion without pain TMD 3.5 finger breadths Mallampati Score 2 Dentition: one crown, denies chipped or loose teeth, caps, implants or bridges Lungs: normal respiratory effort. Good air movement, clear throughout to auscultation, no adventitious breath sounds Cardiac: regular rate and rhythm, no murmurs noted Carotid arteries: negative bruit bilat Lab Results Anesthesia Preop Results Results Anesthesia Widget: WBC 6.75 K/ul (4.8-10.8) 03/16/23 Hgb 12.1 g/dl (12.0-16.0) 03/16/23 Hct 38.4 % (37.0-47.0) 03/16/23 Plt 246 K/uL (130-400) 03/16/23 Na 140 mmol/L (136-145) 03/16/23 K 4.6 mmol/L (3.5-5.1) 03/16/23 Cl 105 mmol/L (98-107) 03/16/23 CO2 28 mmol/L (21-32) 03/16/23 BUN 26 mg/dl (6-23) H 03/16/23 Creat 1.54 mg/dl (0.6-1.2) H 03/16/23 Glucose Level 91 mg/dl (70-99(Fasting)) 03/16/23 PT 10.3 Seconds (9.0-12.0) 03/16/23 PTT 25.9 Seconds (21.0-31.0) 03/16/23 INR 0.9 (0.9-1.1) 03/16/23 Urine Color Yellow 03/16/23 Urine Appearance Clear (Clear) 03/16/23 Urine pH 6.0 (4.5-7.5) 03/16/23 Urine Specific [place] 1.013 (1.000-1.030) 03/16/23 Urine Protein Negative (Negative) 03/16/23 Urine Glucose (UA) Negative (Negative) 03/16/23 Urine Ketones Negative (Negative) 03/16/23 Urine Blood Negative (Negative) 03/16/23 Urine Nitrite Negative (Negative) 03/16/23 Urine Bilirubin Negative (Negative) 03/16/23 Urine Urobilinogen Negative (Negative) 03/16/23 Urine Leukocyte Esterase Negative (Negative) 03/16/23 Blood Type A Positive 03/16/23 Antibody Screen NEGATIVE 03/16/23 Testing Electrocardiogram Date: 03/16/23 Sinus bradycardia, rate 46 bpm Left axis deviation Nonspecific ST and T wave abnormality Chest X-Ray Date: 09/30/22 No acute abnormalities and in particular no evidence of pneumonia COVID-19 Risk Screen Screening Information COVID-19 Screen Date: 03/16/23 Exposure 21 Days Family/Household +COVID Last 21 Days: No Exposure 10 Days Any COVID Exposure Last 10 Days: No Symptoms Last 10 Days Experienced COVID Sx Last 10 Days: No + COVID 0-90 Days COVID + in Last 0-90 Days: No
[~2023-03-30 09:41] MED LIST changes: -ACET-1311 PO; +ACETAMINOPHEN 500 MG TAB PO SCH; -ALPR-411 PO; -BACL10TA PO; +CeleBREX 200 MG CAP PO SCH; +GABAPENTIN 300 MG CAP PO SCH; -LISI-461 PO; +LR 15ML/HR IV SCH; +LR 60ML/HR IV SCH; -PRLSR20 PO; -SIMV40TA2 PO; +ceFAZolin 2000MG 2,000 MG/15 ML SYR IV SCH
[2023-03-30] MEDS ORDERED: ONDANSETRON INJ 2 MG/ML 2 ML VIAL ONE (11:24)
[2023-03-30] MEDS ORDERED: GLYCOPYRROLATE 0.2 MG/ML VIAL ONE (11:24)
[2023-03-30] MEDS ORDERED: DEXAMETHASONE SOD INJ 4 MG/ML VIAL ONE (11:24)
[2023-03-30] MEDS ORDERED: PROPOFOL IV EMULSION 10 MG/ML 20 ML VIAL IV ONE (11:24)
[2023-03-30] MEDS ORDERED: MIDAZOLAM HCL 1 MG/ML 2ML VIAL ONE (11:24)
[2023-03-30] MEDS ORDERED: ROCURONIUM BROMIDE 10 MG/ML 5 ML VIAL IV ONE (11:24)
[2023-03-30] MEDS ORDERED: fentaNYL citrate PF 100 MCG/2 ML VIAL ONE ×2 (11:24)
[2023-03-30] MEDS ORDERED: LIDOCAINE 2% 2 ML VIAL/AMP(20MG/ML) INFIL ONE (11:24)
[2023-03-30] MEDS ORDERED: NEOSTIGMINE METHYLSULFATE 1 MG/ML 10ML VIAL ONE (11:24)
[2023-03-30] MEDS ORDERED: SCOPOLAMINE 1 MG TDSY TD ONE ×2 (11:42→11:45)
[2023-03-30] MEDS ORDERED: ONDANSETRON INJ 2 MG/ML 2 ML VIAL IV PRN ×2 (11:42→16:48)
[2023-03-30] MEDS ORDERED: ATROPINE SULFATE 0.1 MG/ML 10ML SYR IV PRN (11:42)
[2023-03-30] MEDS ORDERED: LABETALOL HCL IV 5 MG/ML 20ML IV PRN (11:42)
[2023-03-30] MEDS ORDERED: PROMETHAZINE HCL 12.5 MG in SODIUM CHLORIDE 0.9% 50 ML IV PRN ×2 (11:42→16:48)
--- NOTE | 2023-03-30 11:43 | History & Physical Bridge Note ---
Date of Service March 30, 2023 History & Physical Bridge Note I have examined the patient, reviewed the History & Physical and in the interval since the performance of the History & Physical I have noted the following changes of clinical significance: no changes noted
--- NOTE | 2023-03-30 11:44 | History & Physical Report ---
Date of Service March 30, 2023 Assessment & Plan (1) Spinal stenosis of lumbar region: Plan: L2-L5 decompression and fusion History of Present Illness Chief Complaint: Back and leg pain Primary Care Provider: Sapna Agrawal MD This is a 67-year-old female presents with chronic persistent back and leg pain Since course of nonoperative care is here for surgical invention. Allergies Allergy/AdvReac Type Severity Reaction Status Date / Time aminophylline Allergy Unknown BREATHING Verified 03/30/23 10:20 ISSUES, AND VOMITING codeine Allergy Unknown SEVERE Verified 03/30/23 10:20 VOMITING theophylline Allergy Unknown SEVERE Verified 03/30/23 10:20 VOMITING, BREATHING ISSUES oxycodone Allergy Unknown Verified 03/30/23 10:20 Home Medications Medication Instructions Recorded Confirmed Type glucosamine sulf dipot 2 cap PO QAM 06/25/20 03/30/23 History chlr,msm,chond 550 mg-C 30 mg-angelika 1 mg capsule (Glucosamine Chondroitin) fluticasone propionate 50 2 spray intranasal QAM PRN Allergy 06/07/21 03/30/23 Rx mcg/actuation nasal Symptoms #48 grams spray,suspension ascorbic acid (vitamin C) 500 mg 500 mg PO QAM 09/25/21 03/30/23 History capsule,extended release (Vitamin C) cholecalciferol (vitamin D3) 25 1,000 unit PO QAM 09/25/21 03/30/23 History mcg (1,000 unit) capsule triamcinolone acetonide 0.025 % 1 applic topical TID PRN itching 03/11/22 03/19/23 Rx topical cream #15 grams albuterol sulfate 90 mcg/actuation 1 inh inhalation QID PRN shortness 06/04/22 03/30/23 Rx aerosol inhaler (Ventolin HFA) of breath or wheezing #8.5 grams lidocaine 5 % topical patch 2 patch topical DAILY #60 ea 10/21/22 03/30/23 Rx alprazolam 0.5 mg tablet 0.5 - 1 mg PO HS PRN Sleep #60 tabs 12/05/22 03/30/23 Rx losartan 100 mg tablet 100 mg PO QAM 03/05/23 03/30/23 History meloxicam 15 mg tablet 15 mg PO QAM 03/05/23 03/30/23 History nystatin 100,000 unit/gram topical 1 applic topical DAILY PRN Skin 03/05/23 03/19/23 History powder Irritation pantoprazole 40 mg tablet,delayed 40 mg PO BID 03/05/23 03/30/23 History release sucralfate 100 mg/mL oral 10 ml PO DAILY PRN Nausea #420 mL 03/06/23 03/19/23 Rx suspension valacyclovir 500 mg tablet 500 mg PO DAILY 5 days #5 tabs 03/06/23 03/19/23 Rx (Valtrex) diphenhydramine HCl 25 mg capsule 25 mg PO HS 03/16/23 03/30/23 History (Benadryl) hydrochlorothiazide 25 mg tablet 12.5 mg PO DAILY #30 tabs 03/19/23 03/19/23 Rx baclofen 10 mg tablet 10 mg PO TID PRN muscle spasms 03/25/23 Rx #270 tabs rosuvastatin 20 mg tablet 20 mg PO HS #90 tabs 03/25/23 Rx Past Med/Surg History Medical History Asthma As a teenager, no current issues Bradycardia baseline for patient CKD (chronic kidney disease) stage 3, GFR 30-59 ml/min Depression history of after loss of a child Gastritis GERD (gastroesophageal reflux disease) controlled, stable per pt Hyperlipidemia Hypertension controlled, stable per pt-*pt requests only manual BP checks Kidney disease Chronic Glomerulo nephritis Nausea and vomiting after administration of anesthetic agent denies needing scop patch Obesity (BMI 30-39.9) Sensorineural hearing loss (SNHL) of right ear with restricted hearing of left ear Rt RIVERA Tinnitus of right ear Urinary incontinence Vertigo Has occasional episodes-stable per pt Surgical History H/O bilateral breast implants H/O laparoscopy H/O oophorectomy H/O: hysterectomy History of colonoscopy History of esophagogastroduodenoscopy (EGD) History of selective injection of anesthetic agent around lumbar nerve root Hx of bilateral cataract extraction S/P tooth extraction Family History Brother Hearing loss Son Hearing loss Mother Hypertension Cancer Family history of ovarian cancer Father Hypertension Heart disease Sister Cervix cancer Grandmother (Maternal) Uterine cancer Other Kidney disease Denies family history of Breast cancer Colorectal cancer Social History Smoking Status: Former smoker Tobacco Type: Cigarettes packs per day: 0.5; Smoking End Date: 2007; Second Hand Exposure: Yes (hx growing up); Do You Dip or Chew Tobacco: No; Tobacco Cessation Education Requested by Patient: No Hx Alcohol Use: Yes Alcohol type: beer, wine and hard liquor Alcohol Intake Frequency: 2-3 x/Week Hx Substance Use: No Preferred Language: [place] Communication Ability: Effective Director Online Marketing Required: No Beliefs That Will Affect Care: None Current Living Situation: Spouse Current Living Situation Comment: [employer] current occupational status: retired How many Children do You have: 1 How many Children do You have Comment: Patient noted in patient form that child in 2001. Other Information That Helps Us Care for You: No Feels Safe at Home: Yes Safety Concerns: Feels Safe At This Time Dental Care, Regularly: Yes Physical Activity Frequency: Does not Exercise Seatbelt Use: always Sunscreen Use: Yes Assistive Devices: Glasses and Hearing Aid - Right Assistive Devices Comment: reading glasses Physical Exam Physical Exam: Patient is alert and oriented Heart regular rhythm Lungs clear Results & Data Results & Data Vital Signs (Past 12 Hours) Vital Signs Temp Pulse Resp BP Pulse Ox O2 Del Method 03/30/23 10:27 36.6 C 47 L 20 145/95 H 97 Room Air
[2023-03-30] MEDS ORDERED: BUPIVACAINE/EPINEPHRINE 0.25% 1:200,000 30 ML VIAL ONE (11:59)
[2023-03-30] MEDS ORDERED: ceFAZolin 330 MG/ML 1 GM VIAL ONE (12:00)
[2023-03-30] MEDS ORDERED: FLOSEAL HEMOSTATIC MATRIX 10ML TOP ONE (13:14)
--- NOTE | 2023-03-30 14:53 | Operative Report ---
Post Operative Report Pre & Post Diagnosis Operation Date: 03/30/23 11:25 Pre-Op Diagnosis: Spinal stenosis of lumbar region Post-Op Diagnosis: Spinal stenosis of lumbar region I identified the patient and participated in the time-out.: Yes Procedure Operation Date: 03/30/23 11:25 Actual Procedures 1. Lumbar decompression bilaterally facetectomies and foraminotomies L1-L2, L2- L3, L3-L4 and L4-L5. #2 posterior spinal fusion L2-L5. #3 placement posterior segmental instrumentation L2-L5. #4 interbody fusion L2-L3, L3-L4 and L4-5. #5 placement of Spira 12 x 26 mm at L2-L3, but by 26 mm at L3-L4 and 12 x 26 mm at L4-5. #6 placement locally harvested morselized autograft and posterior gutters. #7 placement of I factor interbody space and infuse collagen sponge, and master graft in the posterior lateral gutters. Surgeon Benjie Delgado, Mess Attendant Crew Mara Ontiveros Estimated Blood Loss 450 Findings Consistent with Post-Op Diagnosis Specimens none Indications This is a 67-year-old female who presents above-mentioned diagnosis after failing since course of nonoperative care she is here for surgical invention. Description of Procedure Patient was met with identified informed consent obtained. Patient was then taken to the operative suite underwent ablation placed in a prone position on the [place] table top Say frame. All bony promises well-padded eyes inspected to ensure no external pressure placed upon. This point lumbar spine was prepped draped normal sterile fashion. Sharp dissection with the assistance of Bovie cautery performed down to and exposing the lamina transverse processes of L2-L3 L4-5 bilaterally. From caudal cephalad fashion complete laminectomy of L4 L3 L2 and partial laminectomy of L1 was performed including bilateral medial facetectomies and foraminotomies addressing severe spinal stenosis. Pedicle screws were then placed in L2-L5 bilaterally with assistance of fluoroscopy and appropriately sized savannah contoured and placed. By way of transforaminal approach and right complete discectomy of L4-5 was performed endplates curetted to subcortically and bone and a 12 x 26 mm Spira cage with I factor tapped in position. Then proceeded to L3-L4 and again by way of a transfemoral approach and right complete discectomy performed endplates curetted to subcortical bleeding bone and 11 x 26 mm Spira cage with I factor tapped in position. Then proceeded to L to L3 and again by way of a transforaminal approach at this time on the left complete discectomy performed endplates guided to subcortically bone and a 10 x 26 mm Spira cage with I factor tapped in position. The rods were then locked in final position bilaterally. The transverse processes of L2-L3-L4 and 5 burred to subcortically bone. Infuse collagen sponge, master graft locally harvested morselized autograft was placed in the posterior gutters. 15 round LATASHA drain inserted. The incision was then closed with 1 pack in the fascia 2-0 Vicryl subcutaneously and 4 Monocryl for final skin closure. Steri-Strips sterile dressing placed. Patient waken taken to PACU in stable condition. Please note spinal cord monitoring utilized at the procedure no changes noted. Lastly Mara Ontiveros was present at the entire surgery and while the patient positioning complex portions of the surgery and final skin closure. I attest to the content of the Intraoperative Record and any orders documented therein. Any exceptions are noted below.
[2023-03-30] MEDS: HYDROmorphone INJ 1 MG/ML SYRINGE IV PRN ×5 (15:20→15:55)
--- NOTE | 2023-03-30 16:14 | Anesthesiology Progress Note ---
Date of Service March 30, 2023 Anesthesia Post Procedure Vital Signs Vital Signs: Temp Pulse Pulse Resp BP Pulse Ox O2 Del Method 03/30/23 16:09 46 L 17 108/70 99 Nasal Cannula 03/30/23 16:00 62 12 131/79 94 Nasal Cannula 03/30/23 15:50 68 19 134/86 98 Nasal Cannula 03/30/23 15:40 45 L 13 106/72 97 Oxymask 03/30/23 15:30 44 L 17 123/70 100 Oxymask 03/30/23 15:20 60 24 130/106 H 100 Oxymask 03/30/23 15:12 36.3 C L 66 14 150/99 H 100 Oxymask 03/30/23 10:27 36.6 C 47 L 20 145/95 H 97 Room Air O2 Flow Rate 03/30/23 16:09 2 03/30/23 16:00 2 03/30/23 15:50 2 03/30/23 15:40 2 03/30/23 15:30 4 03/30/23 15:20 6 03/30/23 15:12 6 03/30/23 10:27 Pain Intensity Back: Pain Intensity: 7 Lower Back: Pain Intensity: 8 Transfer of Care Handoff Completed per policy Notes Mental Status: alert / awake / arousable and participated in evaluation Patient Amnestic to Procedure: Yes Nausea / Vomiting: adequately controlled Pain: adequately controlled Airway Patency, RR, SpO2: stable & adequate BP & HR: stable & adequate Hydration State: stable & adequate Anesthetic Complications: no major complications apparent and Pt Satisfied with anesthetic care
[2023-03-30] MEDS ORDERED: oxyCODONE HCL IR 5 MG TAB (IMMEDIATE RELEASE) PO PRN (16:48)
[2023-03-30] MEDS ORDERED: METOCLOPRAMIDE HCL INJ 5 MG/ML 2 ML VIAL IV PRN (16:48)
[2023-03-30] MEDS ORDERED: diphenhydrAMINE Capsule 25 MG CAP PO PRN (16:48)
[2023-03-30] MEDS ORDERED: NALOXONE HCL 0.4 MG/1 ML VIAL/CARP IV PRN (16:48)
[2023-03-30] MEDS ORDERED: ALUMINUM/MAGNESIUM SUSP 30 ML UDC PO PRN (16:48)
[2023-03-30] MEDS ORDERED: DO NOT ADMINISTER PNEUMOCOCCAL VACCINE PRN (16:48)
[2023-03-30] MEDS ORDERED: ACETAMINOPHEN 500 MG TAB PO PRN (16:48)
[2023-03-30] MEDS ORDERED: FAMOTIDINE 20 MG TAB PO PRN (16:48)
[2023-03-30] MEDS ORDERED: HYDROmorphone INJ 1 MG/ML SYRINGE IV PRN (16:48)
[2023-03-30] MEDS ORDERED: FLUTICASONE PROPIONATE NA SPR 16 GM BTL PRN (16:48)
[2023-03-30] MEDS ORDERED: bisacodyL 10 MG SUPP PR PRN (16:48)
[2023-03-30] MEDS ORDERED: SOD PHOSPHATE/SOD BIPHOSPHATE ENEMA 132 ML BTL PR PRN (16:48)
[2023-03-30] MEDS ORDERED: ACETAMINOPHEN 1,000 MG/100 ML VIAL IV PRN (16:48)
[2023-03-30] MEDS ORDERED: MAGNESIUM HYDROXIDE SUSP 30 ML UDC PO PRN (16:48)
[2023-03-30] MEDS ORDERED: hydrOXYzine HCl 25 MG TAB PO PRN (16:48)
[2023-03-30] MEDS ORDERED: LORazepam 0.5 MG TAB PO PRN (16:48)
[2023-03-30] MEDS ORDERED: ALBUTEROL HFA 8 GM INHALER INH PRN (16:48)
[2023-03-30] MEDS ORDERED: DO NOT ADMINISTER FLU VACCINE PRN (16:48)
[2023-03-30] MEDS ORDERED: ONDANSETRON 4 MG OD TAB PO PRN (16:48)
[2023-03-30] MEDS ORDERED: LORazepam 2 MG/1 ML VIAL IV PRN (16:48)
[2023-03-30] MEDS: LACTATED RINGER'S 1,000 ML IV SCH (17:41)
[2023-03-30] MEDS: CHECK SCOPOLAMINE PATCH PLACEMENT SCH ×2 (17:41→23:56)
--- NOTE | 2023-03-30 18:13 | Hospitalist Consultation ---
Date of Consultation March 30, 2023 Assessment & Plan (1) Spinal stenosis of lumbar region: s/p 1. Lumbar decompression bilaterally facetectomies and foraminotomies L1-L2, L2-L3, L3-L4 and L4-L5. #2 posterior spinal fusion L2-L5. #3 placement posterior segmental instrumentation L2-L5. #4 interbody fusion L2-L3, L3-L4 and L4-5. #5 placement of Spira 12 x 26 mm at L2-L3, but by 26 mm at L3-L4 and 12 x 26 mm at L4-5. #6 placement locally harvested morselized autograft and posterior gutters. #7 placement of I factor interbody space and infuse collagen sponge, and master graft in the posterior lateral gutters with Dr Delgado 03/30. EBL 450cc Pain control/bowel regimen/PT/OT per primary service DVT proph: SCDs, patrice hose in place. Chemoproph contraindicated w/ back surgery Monitor labs in AM (2) Hypertension: on losartan 100mg, HCTZ 12.5mg (recently reduced) BP evelia 125/73 post-op Will hold losartan/HCTZ overnight If BP/kidney function stable on AM labs can resume (will need to order her HCTZ as not previously ordered) (3) Gastroesophageal reflux disease: chronic, no issues reported at present continue PPI BID (4) Hypercholesterolemia: continue statin HS (5) CKD (chronic kidney disease) stage 3, GFR 30-59 ml/min: holding HCTZ/losartan post op as above recently decreased HCTZ by PCP to 12.5mg from 25mg for cramping cautious use NSAIDs recommended monitor BMP in AM Plan Thank you for allowing hospitalist to participate in the care of Mrs Mcgraw. Hospitalist service will follow along. Please call with any questions/concerns. Of note, would like ot be kept abreast of dc date/planning given they live ~[place] away to be able to accommodate transportation. Supervising Physician Co-Signing Physician Notes I personally saw and examined the patient. I verified all benites points and agree with Sheryl Burt PA-C with the following exceptions and/or additions: 67 year old female POD#0 lumbar decompression and instrumentation L2-L5. EBL 450ml. Only current concern is with not being prescribed her usual Xanax. Possible had some reactions to lorazepam in the past. Main reason for surgery was back pain rather than radiculopathy therefore unable to tell if some improvement at this stage. O/E A&Ox3, HS RRR, no murmurs, Chest CTAB, Ando SNT A/P VTE/Pain/bowel management per primary orthopedic team Insomnia - switched lorazepam back to her usual Xanax per patient request Otherwise as above - agree with holding anti-hypertensives initially History of Present Illness Reason for Consultation: med management Requesting Physician: Dr Delgado Attending Physician: Benjie Delgado, DO History of Present Illness 67yo female with PMHx significant for HTN, HLD, CKD III, obesity presented for lumbar decompression and fusion with Dr Delgado. Patient evaluated post-op with at bedside. Fatigued and medicated for p ain, but answering questions appropriately. This is her first back surgery. Pain currently controlled. No CP/SOB. On 2L via NC post-op. She recently had her HCTZ reduced for leg cramping which has improved. Discussed holding HCTZ/losartan until AM to eval BP/kidney function. Currently eating some Austrian ice to help with pain from airway for surgery but denies any SOB at present/no hypoxia. Per , lives about 70 miles away. Planning for dc on but would like ot be updated prior as possible. No fever/chills, abdominal pain, nausea or vomiting at present. Asking about imaging from surgery -- films showed to patient/. Discussed limiting NSAIDs with her CKD - she repots that has been the only thing effective. Discussed hopefully able to limit now that surgery completed. Will monitor. Questions/concerns addressed. Allergies Allergy/AdvReac Type Severity Reaction Status Date / Time aminophylline Allergy Unknown BREATHING Verified 03/30/23 10:20 ISSUES, AND VOMITING codeine Allergy Unknown SEVERE Verified 03/30/23 10:20 VOMITING theophylline Allergy Unknown SEVERE Verified 03/30/23 10:20 VOMITING, BREATHING ISSUES oxycodone Allergy Unknown Verified 03/30/23 10:20 Home Medications Medication Instructions Recorded Confirmed Type glucosamine sulf dipot 2 cap PO QAM 06/25/20 03/30/23 History chlr,msm,chond 550 mg-C 30 mg-angelika 1 mg capsule (Glucosamine Chondroitin) fluticasone propionate 50 2 spray intranasal QAM PRN Allergy 06/07/21 03/30/23 Rx mcg/actuation nasal Symptoms #48 grams spray,suspension ascorbic acid (vitamin C) 500 mg 500 mg PO QAM 09/25/21 03/30/23 History capsule,extended release (Vitamin C) cholecalciferol (vitamin D3) 25 1,000 unit PO QAM 09/25/21 03/30/23 History mcg (1,000 unit) capsule triamcinolone acetonide 0.025 % 1 applic topical TID PRN itching 03/11/22 03/19/23 Rx topical cream #15 grams albuterol sulfate 90 mcg/actuation 1 inh inhalation QID PRN shortness 06/04/22 03/30/23 Rx aerosol inhaler (Ventolin HFA) of breath or wheezing #8.5 grams lidocaine 5 % topical patch 2 patch topical DAILY #60 ea 10/21/22 03/30/23 Rx alprazolam 0.5 mg tablet 0.5 - 1 mg PO HS PRN Sleep #60 tabs 12/05/22 03/30/23 Rx losartan 100 mg tablet 100 mg PO QAM 03/05/23 03/30/23 History meloxicam 15 mg tablet 15 mg PO QAM 03/05/23 03/30/23 History nystatin 100,000 unit/gram topical 1 applic topical DAILY PRN Skin 03/05/23 03/19/23 History powder Irritation pantoprazole 40 mg tablet,delayed 40 mg PO BID 03/05/23 03/30/23 History release sucralfate 100 mg/mL oral 10 ml PO DAILY PRN Nausea #420 mL 03/06/23 03/19/23 Rx suspension valacyclovir 500 mg tablet 500 mg PO DAILY 5 days #5 tabs 03/06/23 03/19/23 Rx (Valtrex) diphenhydramine HCl 25 mg capsule 25 mg PO HS 03/16/23 03/30/23 History (Benadryl) hydrochlorothiazide 25 mg tablet 12.5 mg PO DAILY #30 tabs 03/19/23 03/19/23 Rx baclofen 10 mg tablet 10 mg PO TID PRN muscle spasms 03/25/23 Rx #270 tabs rosuvastatin 20 mg tablet 20 mg PO HS #90 tabs 03/25/23 Rx Patient History Medical History Asthma As a teenager, no current issues Bradycardia baseline for patient CKD (chronic kidney disease) stage 3, GFR 30-59 ml/min Depression history of after loss of a child Gastritis GERD (gastroesophageal reflux disease) controlled, stable per pt Hyperlipidemia Hypertension controlled, stable per pt-*pt requests only manual BP checks Kidney disease Chronic Glomerulo nephritis Nausea and vomiting after administration of anesthetic agent denies needing scop patch Obesity (BMI 30-39.9) Sensorineural hearing loss (SNHL) of right ear with restricted hearing of left ear Rt RIVERA Tinnitus of right ear Urinary incontinence Vertigo Has occasional episodes-stable per pt Surgical History H/O bilateral breast implants last exchange 08/2017 for rupture and capsular contracture [place] 425 cc silicone, smooth round H/O laparoscopy Dx H/O oophorectomy L, R remains H/O: hysterectomy 1984 History of colonoscopy History of esophagogastroduodenoscopy (EGD) History of selective injection of anesthetic agent around lumbar nerve root Hx of bilateral cataract extraction S/P tooth extraction Family History Brother Hearing loss Son Hearing loss Mother Hypertension Cancer Family history of ovarian cancer Father Hypertension Heart disease Sister Cervix cancer Grandmother (Maternal) Uterine cancer Other Kidney disease Denies family history of Breast cancer Colorectal cancer Social History Smoking Status: Former smoker Tobacco Type: Cigarettes packs per day: 0.5; Smoking End Date: 2007; Second Hand Exposure: Yes (hx growing up); Do You Dip or Chew Tobacco: No; Tobacco Cessation Education Requested by Patient: No Hx Alcohol Use: Yes Alcohol type: beer, wine and hard liquor Alcohol Intake Frequency: 2-3 x/Week Hx Substance Use: No Preferred Language: Samoan Communication Ability: Effective [employer] Operations Superintendent Required: No Beliefs That Will Affect Care: None Current Living Situation: Spouse Current Living Situation Comment: [employer] current occupational status: retired How many Children do You have: 1 How many Children do You have Comment: Patient noted in patient form that child in 2001. Other Information That Helps Us Care for You: No Feels Safe at Home: Yes Safety Concerns: Feels Safe At This Time Dental Care, Regularly: Yes Physical Activity Frequency: Does not Exercise Seatbelt Use: always Sunscreen Use: Yes Assistive Devices: Glasses, Hearing Aid - Right and Other Assistive Devices Comment: nerve stimulator Review of Systems Review of Systems: All systems reviewed & are unremarkable except as noted in HPI & below Physical Exam Physical Exam: General: WD/WN female sitting up in bed, eating iraqi ice, NAD, at bedside HEENT: head normocephalic, atraumatic, mm slightly dry,trachea midline Resp: CTA, slightly diminished in the bases, no w/c/r, on 2L post op via NC CV: RRR, no significant m/r/g, no pitting edema/calf tenderness GI: +BS, soft/NT : vaca draining clear yellow urine MSK/Neuro: dressing c/d/i, LATASHA bloody drainage, pulses palpable, calves nontender, pulses palpable, sensation intact dorsiflexion/plantar flexion intact bilaterally Psych: AOx3, cooperative with exam, fatigued appearing after surgery (medicated for pain) Results & Data Results & Data Vital Signs (Past 12 Hours) Vital Signs Temp Pulse Pulse Resp BP Pulse Ox O2 Del Method 03/30/23 17:00 Nasal Cannula 03/30/23 17:00 Nasal Cannula 03/30/23 17:39 65 14 125/73 98 Room Air 03/30/23 17:09 66 16 115/77 99 Nasal Cannula 03/30/23 16:40 36.5 C 65 14 122/69 98 Room Air 03/30/23 16:10 46 L 17 108/70 99 Nasal Cannula 03/30/23 16:00 62 12 131/79 94 Nasal Cannula 03/30/23 16:30 66 12 128/79 100 Nasal Cannula 03/30/23 16:20 36.5 C 55 L 14 111/73 100 Nasal Cannula 03/30/23 15:50 68 19 134/86 98 Nasal Cannula 03/30/23 15:40 45 L 13 106/72 97 Oxymask 03/30/23 15:30 44 L 17 123/70 100 Oxymask 03/30/23 15:20 60 24 130/106 H 100 Oxymask 03/30/23 15:12 36.3 C L 66 14 150/99 H 100 Oxymask 03/30/23 10:27 36.6 C 47 L 20 145/95 H 97 Room Air O2 Flow Rate 03/30/23 17:00 2 03/30/23 17:00 2 03/30/23 17:39 03/30/23 17:09 2 03/30/23 16:40 2 03/30/23 16:10 2 03/30/23 16:00 2 03/30/23 16:30 2 03/30/23 16:20 2 03/30/23 15:50 2 03/30/23 15:40 2 03/30/23 15:30 4 03/30/23 15:20 6 03/30/23 15:12 6 03/30/23 10:27 Laboratory Results 03/30/23 03/30/23 Range/Units Unknown 10:19 SARS-CoV-2, RNA, NAAT NEGATIVE (NEGATIVE) Blood Type A Positive Antibody Screen NEGATIVE Crossmatch See Detail Diagnostic Findings Lumbar Spine X-Ray 03/30/23 00:00 INTRAOPERATIVE RADIOGRAPHS CLINICAL HISTORY: Lumbar spinal fusion surgery. Fluoro time: 44 seconds. Ka,r: 42.28 mGy FINDINGS: 4 spot fluoroscopic views of the lumbar spine are presented. There has been discectomy at L2-L3, L3-L4, and L4-L5 with laminectomy and posterior fusion at L2-L5. Interpedicular screws are present at all levels. The orthopedic hardware appears intact. IMPRESSION: Intraoperative images from lumbar spinal fusion surgery as above. Electronically signed by: Madan Veliz M.D. 03/30/2023 6:17 PM PG Care Time/CCT Total # of Minutes Spent Total Time Spent with Patient: Total time spent is greater than 50% in coordination of care (as documented) at patient's floor/unit and/or counseling patient: Coding Level of Care Code 55858 IN/OBS CONSULT LVL 3,45M Diagnoses Spinal stenosis of lumbar region M48.061 Hypertension I10 Gastroesophageal reflux disease K21.9 Hypercholesterolemia E78.00 CKD (chronic kidney disease) stage 3, GFR 30-59 ml/min N18.30
--- NOTE | 2023-03-30 18:19 | Fluoroscopy Report ---
INTRAOPERATIVE RADIOGRAPHS CLINICAL HISTORY: Lumbar spinal fusion surgery. Fluoro time: 44 seconds. Ka,r: 42.28 mGy FINDINGS: 4 spot fluoroscopic views of the lumbar spine are presented. There has been discectomy at L 2-L3, L3-L4, and L4-L5 with laminectomy and posterior fusion at L2-L5. Interpedicular screws are pres ent at all levels. The orthopedic hardware appears intact. IMPRESSION: Intraoperative images from lumbar spinal fusion surgery as above. Electronically signed by: Madan Veliz M.D. 03/30/2023 6:17 PM
[2023-03-30] MEDS: traMADol HCL 50 MG TABLET PO PRN (19:28)
[2023-03-30] MEDS: PANTOprazole 40 MG TAB PO SCH (20:59)
[2023-03-30] MEDS: DOCUSATE SODIUM/SENNA 50/8.6MG TAB PO SCH (20:59)
[2023-03-30] MEDS: ceFAZolin 2000MG 2,000 MG/15 ML SYR IV SCH (21:01)
[2023-03-30] MEDS: diphenhydrAMINE Capsule 25 MG CAP PO SCH (21:03)
[2023-03-30] MEDS: ALPRAZolam 0.5 MG TABLET PO PRN (22:23)
[2023-03-31] MEDS: traMADol HCL 50 MG TABLET PO PRN ×4 (00:48→20:51)
[2023-03-31] MEDS: ALPRAZolam 0.5 MG TABLET PO PRN ×2 (02:24→22:14)
[2023-03-31] MEDS: LACTATED RINGER'S 1,000 ML IV SCH (04:26)
[2023-03-31] MEDS: POLYETHYLENE (MIRALAX) 17 GM PACK PO SCH ×4 (05:40→23:42)
[2023-03-31] MEDS: ceFAZolin 2000MG 2,000 MG/15 ML SYR IV SCH (05:40)
[2023-03-31 07:23] LABS: Basophils # (auto) 0.03 K/uL (0-0.2); Basophils % (auto) 0.2 %; Hematocrit (blood only) 31.5 % (37.0-47.0); Hemoglobin 10.3 g/dl (12.0-16.0); Immature Granulocytes # (auto) 0.07 K/uL (0.01-0.20); Immature Granulocytes % (auto) 0.5 %; Lymphocytes # (auto) 0.76 K/uL (1.2-3.4); Lymphocytes % (auto) 5.1 %; Mean Corpuscular Hemoglobin 30.3 pg (25.0-34.0); Mean Corpuscular Hgb Conc 32.7 g/dL (32.0-36.0); Mean Corpuscular Volume 92.6 fL (80.0-100.0); Mean Platelet Volume 10.5 fL (9.4-12.4); Monocytes # (auto) 0.87 K/uL (0.11-0.59); Monocytes % (auto) 5.9 %; Neutrophils # (auto) 13.13 K/uL (1.40-6.50); Neutrophils % (auto) 88.3 %; Platelet Count 248 K/uL (130-400); RDW Coefficient of Variation 14.5 % (11.5-14.5); RDW Standard Deviation 48.7 fL (36.4-46.3); White Blood Count 14.86 K/ul (4.8-10.8)
[2023-03-31] MEDS: HYDROmorphone INJ 0.5 MG/0.5 ML SYR IV PRN ×2 (07:29→18:34)
[2023-03-31] MEDS: CHECK SCOPOLAMINE PATCH PLACEMENT SCH ×3 (07:32→23:45)
[2023-03-31 07:37] LABS: BUN Creatinine Ratio 18.8 (10-20); Calcium 8.9 mg/dl (8.6-10.3); Creatinine Clr Calc Pharmacy 45.9 ml/min; Est GFR (African American) 49.4 ml/min; Est GFR (Non-African American) 42.6 ml/min; Potassium 4.3 mmol/L (3.5-5.1)
[2023-03-31] MEDS: CHOLECALCIFEROL 1,000 UNITS 25 MCG TAB PO SCH (08:07)
[2023-03-31] MEDS: ASCORBIC ACID 500 MG TAB PO SCH (08:07)
[2023-03-31] MEDS: dexAMETHasone 6 MG in SYRINGE 0 ML IV SCH (08:08)
[2023-03-31] MEDS ORDERED: LOSARTAN POTASSIUM 50 MG TAB PO SCH (09:00)
[2023-03-31] MEDS: PANTOprazole 40 MG TAB PO SCH ×2 (09:41→20:51)
--- NOTE | 2023-03-31 11:41 | Orthopedic Progress Note ---
Date of Service March 31, 2023 Assessment & Plan (1) Spinal stenosis of lumbar region: Plan: At this time we will continue physical therapy monitor LATASHA output hopefully discharge home later of this week. Admission and Anticipated Discharge Date Admission Date: March 30, 2023 Subjective Back pain controlled leg pain improved Physical Exam Physical Exam: Patient is good strength testing. Appears comfortable. Results & Data Vital Signs (Past 12 Hours) Vital Signs Temp Pulse Resp BP BP Pulse Ox O2 Del Method 03/31/23 10:50 36.9 C 66 16 115/70 92 Room Air 03/31/23 08:14 116/73 03/31/23 06:56 36.9 C 57 L 16 95/61 L 99/64 L 93 Room Air 03/31/23 02:11 36.5 C 73 16 112/77 94 Room Air 03/31/23 00:05 36.7 C 74 16 107/72 94 Room Air Queries Orthopedic Spine Acute Posthemorrhagic Anemia: Yes Obesity: Yes
[2023-03-31] MEDS: DOCUSATE SODIUM/SENNA 50/8.6MG TAB PO SCH (20:51)
[2023-03-31] MEDS: diphenhydrAMINE Capsule 25 MG CAP PO SCH (22:14)
[2023-04-01] MEDS ORDERED: bisacodyL 5 MG TABEC PO ONE (00:12)
[2023-04-01] MEDS: traMADol HCL 50 MG TABLET PO PRN ×5 (02:56→21:32)
[2023-04-01] MEDS: POLYETHYLENE (MIRALAX) 17 GM PACK PO SCH ×3 (03:37→17:06)
[2023-04-01] MEDS: PANTOprazole 40 MG TAB PO SCH ×2 (08:16→21:27)
[2023-04-01] MEDS ORDERED: bisacodyL 10 MG SUPP PR PRN (08:17)
[2023-04-01] MEDS: ASCORBIC ACID 500 MG TAB PO SCH (08:17)
--- NOTE | 2023-04-01 08:17 | Orthopedic Progress Note ---
Date of Service April 01, 2023 Assessment & Plan (1) Spinal stenosis of lumbar region: Plan: Na postoperative day 2 status post L2-5 decompression and fusion. We will work on bowel regimen today. DVT prophylaxis is in the form teds and SCDs. Continue pain control. Maintain LATASHA drain. Continue with ambulation and physical therapy. Anticipate discharge home later on this week. Admission and Anticipated Discharge Date Admission Date: March 30, 2023 Subjective Abel is postoperative day 2 status post L2-5 decompression and fusion. She has complaints of back pain. No radicular leg pain. LATASHA drain output last shift was 135 cc. She is passing flatus but no bowel movement. Yesterday in physical therapy ambling roughly 250 feet. No new complaints. Review of Systems Review of Systems: All systems reviewed & are unremarkable except as noted in HPI & below Physical Exam Physical Exam: She is lying in bed in no acute distress Alert and oriented x3 Lumbar dressing is clean dry and intact functioning LATASHA drain Calf soft nontender bilaterally Strength intact bilateral lower extremities Results & Data Vital Signs (Past 12 Hours) Vital Signs Temp Pulse Resp BP BP Pulse Ox O2 Del Method 04/01/23 07:23 36.8 C 60 16 116/74 95 Room Air 03/31/23 20:43 36.8 C 67 18 148/76 H 94 Room Air
[2023-04-01] MEDS: CHECK SCOPOLAMINE PATCH PLACEMENT SCH ×3 (08:19→22:58)
[2023-04-01] MEDS: CHOLECALCIFEROL 1,000 UNITS 25 MCG TAB PO SCH (08:20)
[2023-04-01] MEDS: bisacodyL 5 MG TABEC PO SCH (08:26)
[2023-04-01] MEDS: dexAMETHasone 6 MG in SYRINGE 0 ML IV SCH (09:44)
[2023-04-01 11:16] LABS: Hematocrit (blood only) 27.4 % (37.0-47.0); Hemoglobin 8.9 g/dl (12.0-16.0); Mean Corpuscular Hemoglobin 29.9 pg (25.0-34.0); Mean Corpuscular Hgb Conc 32.5 g/dL (32.0-36.0); Mean Corpuscular Volume 91.9 fL (80.0-100.0); Mean Platelet Volume 10.1 fL (9.4-12.4); Platelet Count 198 K/uL (130-400); RDW Coefficient of Variation 14.8 % (11.5-14.5); RDW Standard Deviation 49.7 fL (36.4-46.3); Red Blood Count 2.98 M/uL (4.20-5.40); White Blood Count 14.35 K/ul (4.8-10.8)
[2023-04-01 11:27] LABS: BUN Creatinine Ratio 20.7 (10-20); Calcium 8.7 mg/dl (8.6-10.3); Creatinine Clr Calc Pharmacy 43.5 ml/min; Est GFR (African American) 46.3 ml/min; Potassium 4.2 mmol/L (3.5-5.1)
--- NOTE | 2023-04-01 20:14 | Hospitalist Progress Note ---
Date of Service April 01, 2023 Assessment & Plan (1) Spinal stenosis of lumbar region: Plan: POD #2 s/p Lumbar decompression-fusion procedure L2-L5. Course complicated by mild-moderate acute blood loss anemia. Some constipation - on regimen as ordered by primary ortho service. DVT proph - TEDS, SCDs. PT, OT. Dispo per ortho. (2) Acute blood loss anemia: Plan: pre-op hemoglobin 12.1 now 8.9 today bears close watching would repeat H/H in am pt remains hemodynamically stable (3) Hypertension: Plan: would continue to hold losartan & HCTZ with acute blood loss anemia neither agent currently needed BPs stable creatinine is stable (4) Gastroesophageal reflux disease: Plan: continue PPI BID (5) Hypercholesterolemia: Plan: can resume statin at discharge (6) CKD (chronic kidney disease) stage 3, GFR 30-59 ml/min: Plan: CrCl low 40s and stable (7) Constipation: Plan: miralax changed to daily dulcolax by primary service today can also use dulcolax suppos prn if needed Plan will continue to follow Admission and Anticipated Discharge Date Admission Date: March 30, 2023 Subjective patient reports pain is controlled at rest worst with trying to move and ambulate no pain in either leg passing flatus; no stool yet eating well no other new complaints Review of Systems Review of Systems: cv - no chest pain, no orthopnea pulm - no dyspnea GI - no nausea or vomiting Physical Exam Physical Exam: gen - NAD, pleasant mouth - MMM neck - no JVD heart - RRR, s1 s2, no murmur lungs - CTA b/l abd - soft NT BS+; minimally distended ext - no edema, pulses 2+ b/l psych - a/o x 3 Results & Data Results & Data Vital Signs (Past 12 Hours) Vital Signs Temp Pulse Resp BP Pulse Ox O2 Del Method 04/01/23 15:28 36.7 C 64 16 136/81 94 Room Air Laboratory Results Laboratory Results - last 24 hr 04/01/23 04/01/23 10:45 10:45 WBC 14.35 H RBC 2.98 L Hgb 8.9 L Hct 27.4 L MCV 91.9 MCH 29.9 MCHC 32.5 RDW Std Deviation 49.7 H RDW Coeff of Kendall 14.8 H Plt Count 198 MPV 10.1 Sodium 135 L Potassium 4.2 Chloride 102 Carbon Dioxide 27 Anion Gap 6 BUN 28 H Creatinine 1.35 H Est Cr Clr Drug Dosing 43.5 Est GFR ( Amer) 46.3 Est GFR (Non-Af Amer) 40.0 BUN/Creatinine Ratio 20.7 H Glucose 116 H Calcium 8.7 PG Care Time/CCT Total # of Minutes Spent Total Time Spent with Patient: Total time spent is greater than 50% in coordination of care (as documented) at patient's floor/unit and/or counseling patient: Coding Level of Care Code 86412 SUB INP/OBS CARE 25MIN Diagnoses Spinal stenosis of lumbar region M48.061 Acute blood loss anemia D62 Hypertension I10 Gastroesophageal reflux disease K21.9 Hypercholesterolemia E78.00 CKD (chronic kidney disease) stage 3, GFR 30-59 ml/min N18.30 Constipation K59.00
[2023-04-01] MEDS: DOCUSATE SODIUM/SENNA 50/8.6MG TAB PO SCH (21:27)
[2023-04-01] MEDS: diphenhydrAMINE Capsule 25 MG CAP PO SCH (22:54)
[2023-04-01] MEDS: ALPRAZolam 0.5 MG TABLET PO PRN (22:54)
[2023-04-02] MEDS: traMADol HCL 50 MG TABLET PO PRN ×5 (02:29→23:07)
[2023-04-02 06:56] LABS: Hemoglobin 8.9 g/dl (12.0-16.0)
[2023-04-02] MEDS: dexAMETHasone 6 MG in SYRINGE 0 ML IV SCH (08:29)
[2023-04-02] MEDS: ASCORBIC ACID 500 MG TAB PO SCH (08:29)
[2023-04-02] MEDS: PANTOprazole 40 MG TAB PO SCH ×2 (08:29→21:37)
[2023-04-02] MEDS: CHOLECALCIFEROL 1,000 UNITS 25 MCG TAB PO SCH (08:30)
[2023-04-02] MEDS: bisacodyL 5 MG TABEC PO SCH (08:32)
--- NOTE | 2023-04-02 10:01 | Orthopedic Progress Note ---
Date of Service April 02, 2023 Assessment & Plan (1) Spinal stenosis of lumbar region: Plan: This time we will continue physical therapy monitor LATASHA output anticipate discharge home tomorrow. Admission and Anticipated Discharge Date Admission Date: March 30, 2023 Subjective Patient's back pain is controlled leg symptoms improved Physical Exam Physical Exam: On exam patient is in the chair at the bedside. She is comfortable. Is good strength testing. Results & Data Vital Signs (Past 12 Hours) Vital Signs Temp Pulse Resp BP Pulse Ox O2 Del Method 04/02/23 07:09 36.9 C 64 16 132/83 93 Room Air Queries Orthopedic Spine Acute Posthemorrhagic Anemia: Yes Obesity: Yes
[2023-04-02] MEDS ORDERED: IRON SUCROSE 300 MG in SODIUM CHLORIDE 0.9% 250 ML IV ONE (10:30)
--- NOTE | 2023-04-02 19:37 | Hospitalist Progress Note ---
Date of Service April 02, 2023 Assessment & Plan (1) Spinal stenosis of lumbar region: Plan: POD #3 s/p Lumbar decompression-fusion procedure L2-L5. Course complicated by mild-moderate acute blood loss anemia. H/H stable today. DVT proph - TEDS, SCDs. PT, OT. Dispo per ortho. Likely d/c tomorrow to home with family. (2) Acute blood loss anemia: Plan: pre-op hemoglobin 12.1 again 8.9 today stable x 48 hours IV venofer 300mg IV x 1 given today pt remains hemodynamically stable (3) Hypertension: Plan: would continue to hold losartan & HCTZ - BPs stable without them acute blood loss anemia is cause of such (4) Gastroesophageal reflux disease: Plan: continue PPI BID (5) Hypercholesterolemia: Plan: can resume statin at discharge (6) CKD (chronic kidney disease) stage 3, GFR 30-59 ml/min: Plan: CrCl low 40s and stable on BMP yesterday (7) Constipation: Plan: resolved moved bowels today Plan will continue to follow updated progressing nicely Admission and Anticipated Discharge Date Admission Date: March 30, 2023 Subjective patient feeling much better today eating well had bowel movement ambulated multiple times around the unit today still with pain with transferring from bed to chair / standing tolerated iron infusion today Review of Systems Review of Systems: cv - no chest pain pulm - no dyspnea GI - no nausea/emesis Physical Exam Physical Exam: gen - NAD, pleasant, looks good today mouth - MMM neck - no JVD heart - RRR, s1 s2, no murmur lungs - CTA b/l, slight dry rales bases abd - soft NT BS+ ND ext - no edema, pulses 2+ b/l psych - a/o x 3 Results & Data Results & Data Vital Signs (Past 12 Hours) Vital Signs Temp Pulse Resp BP BP Pulse Ox O2 Del Method 04/02/23 16:16 36.8 C 61 16 130/72 91 Room Air 04/02/23 15:46 36.9 C 61 16 127/79 93 Room Air Laboratory Results Laboratory Results - last 24 hr 04/02/23 06:12 Hgb 8.9 L Hct 27.0 L PG Care Time/CCT Total # of Minutes Spent Total Time Spent with Patient: Total time spent is greater than 50% in coordination of care (as documented) at patient's floor/unit and/or counseling patient: Coding Level of Care Code 71657 SUB INP/OBS CARE Diagnoses Spinal stenosis of lumbar region M48.061 Acute blood loss anemia D62 Hypertension I10 Gastroesophageal reflux disease K21.9 Hypercholesterolemia E78.00 CKD (chronic kidney disease) stage 3, GFR 30-59 ml/min N18.30 Constipation K59.00
[2023-04-02] MEDS: DOCUSATE SODIUM/SENNA 50/8.6MG TAB PO SCH (21:37)
[2023-04-02] MEDS: diphenhydrAMINE Capsule 25 MG CAP PO SCH (21:38)
[2023-04-02] MEDS: ALPRAZolam 0.5 MG TABLET PO PRN (23:07)
[2023-04-03 07:32] LABS: Hematocrit (blood only) 26.8 % (37.0-47.0); Hemoglobin 8.8 g/dl (12.0-16.0); Mean Corpuscular Hemoglobin 29.4 pg (25.0-34.0); Mean Corpuscular Hgb Conc 32.8 g/dL (32.0-36.0); Mean Corpuscular Volume 89.6 fL (80.0-100.0); Mean Platelet Volume 10.6 fL (9.4-12.4); Nucleated RBC # (auto) 0.06 K/uL (0-0.12); Nucleated RBC % (auto) 0.5 %; Platelet Count 241 K/uL (130-400); RDW Coefficient of Variation 14.6 % (11.5-14.5); RDW Standard Deviation 47.3 fL (36.4-46.3); Red Blood Count 2.99 M/uL (4.20-5.40); White Blood Count 12.36 K/ul (4.8-10.8)
[2023-04-03] MEDS: traMADol HCL 50 MG TABLET PO PRN ×2 (07:35→12:30)
[2023-04-03 07:48] LABS: BUN Creatinine Ratio 25.6 (10-20); Calcium 9.2 mg/dl (8.6-10.3); Creatinine Clr Calc Pharmacy 48.6 ml/min; Est GFR (African American) 52.9 ml/min; Est GFR (Non-African American) 45.6 ml/min
[2023-04-03] MEDS ORDERED: IRON SUCROSE 300 MG in SODIUM CHLORIDE 0.9% 250 ML IV ONE (08:00)
[2023-04-03] MEDS ORDERED: FERROUS SULFATE 325 MG TAB PO SCH (08:00)
[2023-04-03] MEDS: ASCORBIC ACID 500 MG TAB PO SCH (09:18)
[2023-04-03] MEDS: CHOLECALCIFEROL 1,000 UNITS 25 MCG TAB PO SCH (09:18)
[2023-04-03] MEDS: PANTOprazole 40 MG TAB PO SCH (09:18)
[2023-04-03] MEDS: bisacodyL 5 MG TABEC PO SCH (09:23)
--- NOTE | 2023-04-03 11:26 | Hospitalist Progress Note ---
Date of Service April 03, 2023 Assessment & Plan (1) Spinal stenosis of lumbar region: Plan: POD #4 s/p Lumbar decompression-fusion procedure L2-L5. Course complicated by mild-moderate acute blood loss anemia. H/H again stable today. Primary ortho team to d/c patient home today. (2) Acute blood loss anemia: Plan: pre-op hemoglobin 12.1 again 8.8 today stable x 72 hours IV venofer 300mg IV x 1 given once again today pt remains hemodynamically stable (3) Hypertension: Plan: continue to hold losartan & HCTZ at discharge BPs stable without them acute blood loss anemia is cause of such f/u with PCP within a week for BP check (4) Gastroesophageal reflux disease: Plan: continue PPI BID (5) Hypercholesterolemia: Plan: resume statin at discharge (6) CKD (chronic kidney disease) stage 3, GFR 30-59 ml/min: Plan: CrCl low 40s at baseline BMP today stable (7) Constipation: Plan: resolved cont bowel regimen upon d/c home (8) Iron deficiency: Plan: ferritin 8.1 earlier this month - c/w FE deficiency has h/o gastritis and esophagitis on EGD 03/2021 cont PPI stop mobic, avoid other NSAIDs f/u with PCP for consideration of additional runs of IV venofer (s/p 2 infusions of such during this hospital stay) likely needs referral back to GI for consideration of repeat endoscopies d/c Hb today 8.8 Plan from medical standpoint ok for d/c home I added medical d/c instructions to her d/c packet Admission and Anticipated Discharge Date Admission Date: March 30, 2023 Subjective no events overnight received IV iron again this am w/o incident back pain reasonably controlled; worst pain is with transfers +BM no dyspnea no abd or chest pain anxious to go home Review of Systems Review of Systems: cv - no orthopnea pulm - no cough or congestion GI - no abd pain musculo - tiny hematoma posterior neck resolving Physical Exam Physical Exam: gen - NAD, pleasant mouth - MMM neck - no JVD heart - RRR, s1 s2, no murmur lungs - CTA b/l, scant dry rales bases abd - soft NT BS+ ND ext - no edema, pulses 2+ b/l psych - a/o x 3 skin - dressings intact low back Results & Data Results & Data Vital Signs (Past 12 Hours) Vital Signs Temp Pulse Resp BP Pulse Ox O2 Del Method 04/03/23 07:25 37.0 C 55 L 18 131/87 94 Room Air Laboratory Results Laboratory Results - last 24 hr 04/03/23 04/03/23 06:37 06:37 WBC 12.36 H RBC 2.99 L Hgb 8.8 L Hct 26.8 L MCV 89.6 MCH 29.4 MCHC 32.8 RDW Std Deviation 47.3 H RDW Coeff of Kendall 14.6 H Plt Count 241 MPV 10.6 Absolute Nucleated RBC 0.06 Nucleated RBC % (auto) 0.5 Sodium 137 Potassium 4.0 Chloride 102 Carbon Dioxide 28 Anion Gap 7 BUN 31 H Creatinine 1.21 H Est Cr Clr Drug Dosing 48.6 Est GFR ( Amer) 52.9 Est GFR (Non-Af Amer) 45.6 BUN/Creatinine Ratio 25.6 H Glucose 88 Calcium 9.2 PG Care Time/CCT Total # of Minutes Spent Total Time Spent with Patient: Total time spent is greater than 50% in coordination of care (as documented) at patient's floor/unit and/or counseling patient: Coding Level of Care Code 72753 SUB INP/OBS CARE 2/35MIN Diagnoses Spinal stenosis of lumbar region M48.061 Acute blood loss anemia D62 Hypertension I10 Gastroesophageal reflux disease K21.9 Hypercholesterolemia E78.00 CKD (chronic kidney disease) stage 3, GFR 30-59 ml/min N18.30 Constipation K59.00 Iron deficiency E61.1
--- NOTE | 2023-04-03 11:33 | Discharge Summary ---
Date of Service April 03, 2023 Admission HPI Per Admitting Provider This is a 67-year-old female presents with chronic persistent back and leg pain Since course of nonoperative care is here for surgical invention. Principal Diagnosis Lumbar spinal stenosis with neurogenic claudication Discharge Data Allergies Allergy/AdvReac Type Severity Reaction Status Date / Time aminophylline Allergy Unknown BREATHING Verified 03/30/23 10:20 ISSUES, AND VOMITING codeine Allergy Unknown SEVERE Verified 03/30/23 10:20 VOMITING theophylline Allergy Unknown SEVERE Verified 03/30/23 10:20 VOMITING, BREATHING ISSUES oxycodone Allergy Unknown Verified 03/30/23 10:20 Consultations 03/30/23 16:48 Consult Hospitalist Routine Procedures Performed Operation Date: 03/30/23 11:25 Actual Procedures p L2-L5 Decompression and Fusion, Spinal Cord Monitoring(Not Applicable) - Benjie Delgado DO Ordered Studies 03/30/23 [place] lumbar spine 2-3V Routine Hospital Course (1) Spinal stenosis of lumbar region: Patient underwent multilevel lumbar decompression fusion tolerated this well was taken to orthopedic for postoperative pain postop day 1 she was up and ambulate progress postop day #2 and 3 LATASHA drain decreasing probably. Pain well controlled . Bowels working appropriately. Excellent strength testing. Subsidy discharged home. Discharge orders instructions from the chart for further review. Total Time Total Time Spent Total Time Spent (In Minutes): 20 minutes Discharge Plan Discharge Items Patient Disposition: Home - Home Health Services Reason For Visit: Lumbar Region Spinal Stenosis with Neurogenic [place]et[place] Discharge Diagnosis: Lumbar spinal stenosis with neurogenic claudication Activity: As commented below Non-emergency contact: Primary Care Provider Call non-emergency contact if: you have any medication questions Follow-up/Referrals: Sapna Agrawal MD [Primary Care Provider] - Diet: Regular Addtl Attending Provider Instructions: ACTIVITY RECOMMENDATIONS: SELF CARE INSTRUCTIONS AFTER THORACIC/LUMBAR FUSIONS 1. You may walk to your tolerance. It is good exercise for your legs and back. Expect some back and intermittent leg aches and pains. 2. You may perform "counter-top" level activities (make a sandwich, bharat with a project, etc.). 3. No bending or lifting of more than 10 pounds or back twisting of any nature (roll like a log when turning in bed). 4. You may ride in a car for 20-30 minutes at a time. No driving until after your first visit with your doctor. 5. Frequent changes of position and restricting sitting to 30 minutes at a time will help limit the amount of back spasms and stiffness you may experience. 6. You may discontinue the use of ambulatory aids (cane, crutches, etc.) once your strength and confidence allow. 7. You may dredge pipe installer the shower and let water strike your incision when you arrive home at least once daily. Do not take a tub bath, sit in a hot tub or go into a swimming pool until after your first recheck in the office. SPECIAL CARE INSTRUCTIONS: VERY IMPORTANT TO READ AND REVIEW A. Your surgical incision has been closed with a cosmetic suture under the skin that will dissolve in about 6 weeks. In 14 days, you can use a pair of clean scissors and cut the suture that is left outside of the skin at the ends of your incision. 1. The small skin tapes can be removed 7 days after surgery if they have not fallen off by that point. 2. You may keep the wound open to air as much as possible to promote healing after post-op day number 5 unless told otherwise by your doctor. 3. If you think the wound looks like it is becoming infected (redness or wo rsening drainage) and/or you are experiencing fever, chill or worsening back pain and muscle spasms, contact the office so that we may evaluate you as soon as possible. B. Complications are uncommon, but please contact us if you have any signs or symptoms of: 1. wound infection (fever higher than 102.5 degrees F, redness, separation of wound, drainage, or increasing pain from the incision) 2. blood clots in legs (pain, swelling, redness and warmth in legs) 3. urinary tract infection (fever higher than 102.5 degrees F, burning upon urination or increased frequency of urination) 4. nerve problems (inability to walk on your toes or heels, numbness, loss of bowel or bladder control) 5. any other symptoms that concern you C. Please call the office at if you have any concerns or questions about your operation or recovery. D. No smoking! Smoking drastically decreases the chance of a solid fusion. E. Do not take any anti-inflammatory medications (Indocin, Advil, Motrin, Aspirin, Naprosyn, etc.) as these may inhibit the chance of a solid fusion. Tylenol is okay to take for pain. MANAGING PAIN AFTER SPINAL SURGERY 1. Narcotic medication is intended for short-term use and will be provided for surgical pain. Surgical pain usually lasts for a period of 4-6 weeks. Narcotic medication includes Percocet, Vicodin, Darvocet, Tylenol #3 or Lortab. 2. Longer-term pain is more appropriately treated with non-narcotic medication such as Tylenol ES. 3. Muscle spasm is not appropriately treated with narcotics. Muscle relaxers such as Soma, Flexeril or Skelaxin can be used along with Tylenol ES. 4. Remember that we all live with some "aches and pains". This is not unusual or uncommon after an injury or as we get older. a. Back pain is expected and may include muscle spasms for 4 to 6 weeks after surgery. The pain should gradually improve. If the pain worsens for no apparent reason, please contact the office. b. Intermittent leg pain may also be experienced and should not be concerned about unless it worsens for no apparent reason. If so, please contact the office. 5. We will provide appropriate medication within the normal guidelines of their prescribed use. We will also be very cautious and aware of potential abuse and extended duration of patients' medication needs. a. Pain medications are for your comfort and to assist with sleep and rest so that the tissue can heal. They are not provided in order to return to normal activity and should not be used through the day. To do so or worsening pain at night can result from ongoing tissue damage and development of tolerance to the prescribed medicine. 6. Please allow 2-3 days to process refills. Prescriptions will not be mailed but must be picked up at the office. FOLLOW UP VISIT: Keep your scheduled follow-up appointment. Any questions, please call the office at . Pending Studies at Discharge: No Stand-Alone Forms: [employer], Smoking Cessation Medications and IN Order Prescriptions: New hydrocodone-acetaminophen 5-325 mg tablet 1 tab PO Q6H PRN (Reason: pain) Qty: 30 0RF tramadol 50 mg tablet 50 mg PO Q6H PRN (Reason: pain, moderate) Qty: 30 0RF Continued fluticasone propionate 50 mcg/actuation spray,suspension 2 spray INTNAS QAM PRN (Reason: Allergy Symptoms) Qty: 48 3RF Patient Comments: Patient has not taken in 6 months Rx Instructions: administer into each nostril albuterol sulfate [Ventolin HFA] 90 mcg/actuation HFA aerosol inhaler 1 inh inhalation QID PRN (Reason: shortness of breath or wheezing) Qty: 8.5 0RF Patient Comments: Has not taken in the last 6 months alprazolam 0.5 mg tablet 0.5 - 1 mg PO HS PRN (Reason: Sleep) Qty: 60 0RF Rx Instructions: Ongoing therapy Supervising physician Sapna Agrawal MD INEZ [id number] sucralfate 100 mg/mL suspension 10 ml PO DAILY PRN (Reason: Nausea) Qty: 420 0RF Patient Comments: Patient has not taken in last 3 months Rx Instructions: take 10 milliliters by mouth once daily if needed for nausea SWISH IN MOUTH AND SWALLOW AND USE AFTER FOOD/DRINK valacyclovir [Valtrex] 500 mg tablet 500 mg PO DAILY 5 Days Qty: 5 2RF Patient Comments: Patient has not taken in 10 months baclofen 10 mg tablet 10 mg PO TID PRN (Reason: muscle spasms) Qty: 270 0RF rosuvastatin 20 mg tablet 20 mg PO HS Qty: 90 0RF triamcinolone acetonide 0.025 % cream 1 applic topical TID PRN (Reason: itching) Qty: 15 0RF Patient Comments: patient has not taken in 1 year lidocaine 5 % adhesive patch,medicated 2 patch topical DAILY Qty: 60 6RF Rx Instructions: leave on most painful area for up to 12 hrs then remove for 12 hours before placing a new patch Glucosamine Chondroitin 550-30-1 mg Capsule 2 cap PO QAM ascorbic acid (vitamin C) [Vitamin C] 500 mg capsule, extended release 500 mg PO QAM cholecalciferol (vitamin D3) 25 mcg (1,000 unit) capsule 1,000 unit PO QAM pantoprazole 40 mg tablet,delayed release (DR/EC) 40 mg PO BID Rx Instructions: TAKE 1 TABLET BY MOUTH TWICE DAILY nystatin 100,000 unit/gram powder 1 applic topical DAILY PRN (Reason: Skin Irritation) Patient Comments: Patient has not taken in 6 months Rx Instructions: Apply to affected area. diphenhydramine HCl [Benadryl] 25 mg Capsule 25 mg PO HS Held hydrochlorothiazide 25 mg tablet 12.5 mg PO DAILY Qty: 30 0RF Hold Instructions: hold until you see your family doctor losartan 100 mg tablet 100 mg PO QAM Hold Instructions: hold until you see your family doctor Discontinued meloxicam 15 mg tablet 15 mg PO QAM Rx Instructions: TAKE 1 TABLET BY MOUTH IN THE MORNING Discharge Orders: Discharge Order (Routine); Ordered 04/03/23 Ordered By: Benjie Delgado Admission Data Admit Date/Time: 03/30/23 15:06 Attending Provider: Benjie Delgado Admit Provider: Benjie Delgado Primary Care Provider: Sapna Agrawal Other Providers: Mahin Guillory
[2023-04-03] MEDS: HYDROmorphone INJ 0.5 MG/0.5 ML SYR IV PRN (13:15)
== END 2023-04-03 14:06 | disposition home health service (06) | DRG 454 ==
LOC: ASU 09:41 → 3N 15:06